=== PATIENT | male | born 1955 | race Caucasian/White ===

== ENCOUNTER → 2016-08-05 | Day surgery (SDC) | payer OTHER ==
[~2016-08-05] VITALS: Ht 170.1 cm; Wt 65.3 kg
[~2016-08-05] MED LIST: ADVAIR 500/501 EA INH; BENADRYL25 M2 PO; BENADRYL25 MG PO; CALCIUM 500 W/V1 TAB PO; CALCIUM CITRATE1 TA7 PO; CEFTIN500 MG PO; CIPRO500 MG PO; CLINDAMYCIN HC300 MG PO; COLACE100 MG PO; DOXYCYCLINE MO100 MG PO; DOXYCYCLINE100 M2 PO; DOXYCYCLINE100 M3 PO; DUONEB 3 MG/3 ML3 ML IH; DUONEB 3ML 3 MG/3 ML INH; EFFEXOR XR75 M1 PO; EPI EZ PEN1 MG/ML IM; FOLIC ACID1 MG PO; HYDROCODONE BIT1 T11 PO; INVEGA SUSTENN156 MG IM; INVEGA6 MG PO; LANSOPRAZOLE30 MG PO; LORATADINE10 M1 PO; MEDROL DOSEPAK4 MG PO; MIRALAX POWDER17 G1 PO; MIRALAX17 GM/PACK PO; MOTRIN600 MG PO; MOTRIN800 MG PO; MUCINEX DM 30/61 TAB PO; MUCINEX600 MG PO; Motrin,Rufen800 MG PO; NAPROXEN375 MG PO; NATURE'S BLEND F1 MG PO; OSCAL/D,OYSTER250 MG PO; PHARMASSURE FO0.4 MG PO; PREDNICOT20 MG PO; PREDNISONE10 MG PO; PREDNISONE20 M1 PO; PREDNISONE5 MG PO; PREVACID30 M1 PO; PREVACID30 M3 PO; PROAIR HFA0.09 MG/AC IH; PROAIR HFA0.09 MG/AC PO; PROTONIX40 MG PO; PULMICORT RESP0.5 M1 INH; ROCEPHIN2 GM IJ; SINGULAIR10 MG PO; SPIRIVA18 MCG IH; SPIRIVA18 MCG PO; TAGAMET300 MG PO; TORADOL10 MG PO; TRAMADOL HCL50 MG PO; VENLAFAXINE HYD75 M3 PO; VIBRAMYCIN100 MG PO; VICODIN 5/500 505 MG PO; VICODIN 500 MG-1 TAB PO; XANAX0.25 MG PO; ZANTAC150 MG PO; ZITHROMAX Z PA250 MG PO; ZITHROMAX250 MG PO; ZOFRAN ODT4 MG SL; ZYRTEC10 MG PO
--- NOTE | ~2016-08-05 | O ---
[place], [place] OPERATIVE NOTE NAME: SWETA PARRY UNIT #: [id number] ROOM: DOCTOR: CRISTINO CROWELL MD BIRTHDATE: [birth year] DOS: GASTROENDOSCOPIC REPORT HISTORY OF PRESENT ILLNESS: A 61-year-old patient who has presented with chief complaint of abdominal pain, constipation, weight loss, anorexia, undergoing investigation. PAST MEDICAL HISTORY: Associated with gastritis, COPD, degenerative joint disease, on Motrin. PAST SURGICAL HISTORY: Minor operation. ALLERGIES: IVP DYE, ASPIRIN, NOVOCAIN, PENICILLIN. SOCIAL HISTORY: Nonsmoker, nonalcohol consumer. FAMILY HISTORY: Noncontributory. PROCEDURE: Today's procedure part of investigation is panendoscopy. PREMEDICATION: Versed and Diprivan. SCOPE: Olympus forward viewing gastroscope Q10 video. REPORT: After putting the patient in left lateral position and application of lubricant to the scope, the scope was introduced. Thereafter, under direct visualization, I advanced through the length of the esophagus without difficulty. Esophagus, cervicothoracic distally carefully examined. Gastritis was noticed, bile reflux was noticed. Hiatal hernia was seen. Duodenal bulb, second and third part within normal limits. Antral biopsy was obtained for diffuse gastritis, ruling out H. pylori. The patient extubated, tolerated procedure well. IMPRESSION: Diffuse gastritis, could be secondary to Motrin and prednisone intake. On the other hand, the patient on Prevacid 30 mg daily. We are going to continue with the same therapy. We are going to ask him to be judicial about his Prevacid use and clinical reassessment. Meanwhile, I am going to organize a colonoscopy today. [place], [place] OPERATIVE NOTE NAME: SWETA PARRY UNIT #: [id number] ROOM: DOCTOR: CRISTINO CROWELL MD BIRTHDATE: [birth year] CRISTINO CROWELL MD CM:OPRECORD:OPERATIVE NOTE [id number] CRISTINO CROWELL MD 08/05/16 1130 interface
--- NOTE | ~2016-08-05 | O ---
[place], [place] OPERATIVE NOTE [id number] UNIT #: [id number] ROOM: DOCTOR: SOCRATES CAVAZOS,CRISTINO BIRTHDATE: [birth year] DOS: GASTROENDOSCOPIC REPORT HISTORY OF PRESENT ILLNESS: The patient who has presented with chief complaint of constipation, undergoing investigation, weight loss. PROCEDURE: Today's procedure part of investigation is colonoscopy. PREMEDICATION: Versed and Diprivan. SCOPE: Olympus forward viewing colonoscope 10L video. REPORT: After putting the patient in the left lateral position and after application of lubricant to the scope, the scope was introduced. Thereafter, under direct visualization, I advanced through the length of colon without difficulty. Colon mucosa and vascularity carefully examined and evidence of diverticulosis was seen. Base of the cecum explored, appendiceal orifice identified, and ileocecal valve was defined. The patient extubated, tolerated procedure well. IMPRESSION: Diverticulosis, sessile colonic polyp in rectal pouch, status post piecemeal polypectomy. PLAN AND DISCUSSION: High fiber fruit diet. ACTIVITY: Ad gabriel. I will defer this patient back to our office. In case he is continuing with weight loss, then a CT scan of the abdomen and pelvis as well as a chest x-ray recommended. Follow up with me in office in 2 weeks for further reassessment. CRISTINO CROWELL MD CM:OPRECORD:OPERATIVE NOTE [id number] MARIA ELENA CROWELL MD 08/05/16 1135 interface
[2016-08-05 09:09] VITALS: BP 132/75
[2016-08-05 09:36] VITALS: BP 122/58
[2016-08-05 09:51] VITALS: BP 112/52
[2016-08-05 10:06] VITALS: BP 122/66
== END | disposition home or self-care (01) ==
LOC: SDC 07-30 09:30
DX: K62.1 Rectal polyp (principal); K57.30 Diverticulosis of large intestine without perforation or abscess without bleeding; K29.50 Unspecified chronic gastritis without bleeding; M19.90 Unspecified osteoarthritis, unspecified site; K44.9 Diaphragmatic hernia without obstruction or gangrene; J45.909 Unspecified asthma, uncomplicated; K21.9 Gastro-esophageal reflux disease without esophagitis; F41.9 Anxiety disorder, unspecified; J43.9 Emphysema, unspecified; Z86.14 Personal history of Methicillin resistant Staphylococcus aureus infection; Z82.49 Family history of ischemic heart disease and other diseases of the circulatory system; Z82.5 Family history of asthma and other chronic lower respiratory diseases; Z87.891 Personal history of nicotine dependence

== ENCOUNTER 2017-06-21 10:26 | Inpatient (IN) | payer OTHER ==
[~2017-06-21] VITALS: Ht 170.1 cm; Wt 69.2 kg
--- NOTE | ~2017-06-21 | PR ---
[place], [place] PROGRESS NOTE [id number] UNIT #: [id number] ROOM: 405 DOCTOR: HELENA DELUCA MD BIRTHDATE: [birth year] DOS: SUBJECTIVE: The patient is doing fine without any complaints. Denies any chest pains, palpitations or shortness of breath. PHYSICAL EXAMINATION: GENERAL: The patient is awake and alert and oriented. LUNGS: Diminished breath sounds. No wheezes, rales or rhonchi heard. HEART: Regular. ABDOMEN: Soft. EXTREMITIES: Without any edema. ASSESSMENT AND PLAN: 1. Acute exacerbation of chronic obstructive pulmonary disease, stable and improved. 2. Tachycardia, possibly from underlying DuoNeb. The medication was changed to Xopenex. 3. Chest pain. The patient's echocardiogram is pending, but the patient is stable and will be discharged to home as an outpatient. Follow up as an outpatient with Dr. Katz. HELENA DELUCA MD CM:PNTRANS [id number] HELENA DELUCA MD 06/24/17 1034 interface
--- NOTE | ~2017-06-21 | PR ---
[place], [place] PROGRESS NOTE NAME: SWETA PARRY UNIT #: [id number] ROOM: 405 DOCTOR: HELENA DELUCA MD BIRTHDATE: [birth year] DOS: 06/23/2017 SUBJECTIVE: The patient is doing fine without any complaints. Denies any chest pains, palpitations or shortness of breath. PHYSICAL EXAMINATION: VITAL SIGNS: Blood pressure is 140/61, pulse of 113, respirations 18, temperature 97.4. LUNGS: Diminished breath sounds, clear. HEART: Regular. ABDOMEN: Soft. EXTREMITIES: Without any edema. ASSESSMENT AND PLAN: 1. Acute exacerbation of chronic obstructive pulmonary disease, stable and improving on the current dose of steroids. 2. Acute tracheobronchitis, on IV antibiotics. 3. Bipolar disorder with psychosis, stable. The patient is awaiting an echocardiogram today and if it is normal, the plan is to discharge him to home tomorrow. HELENA DELUCA MD CM:PNTRANS [id number] HELENA DELUCA MD 06/23/17 1217 interface
--- NOTE | ~2017-06-21 | WRIGHTHP ---
[place], [place] PATIENT HISTORY AND PHYSICAL EXAM NAME: SWETA PARRY UNIT #: [id number] ROOM: 405 DOCTOR: YOSI CAVAZOSHELENA BIRTHDATE: [birth year] DOS: 06/21/2017 HISTORY OF PRESENT ILLNESS: The patient is 62 years old, comes in with complaints of shortness of breath for the last 3-4 days, which is increased and so decided to come into the emergency room. He denies having any chest pains, palpitations, not have any fever or chills, does not have any abdominal pain, nausea and emesis. He has extremely dry skin. His cough is productive of scant amounts of white sputum. The patient states that hle is taking all his medications. PAST MEDICAL HISTORY: Significant for: 1. Multiple hospitalizations for acute exacerbation of COPD, last one was February 2016. 2. Bipolar disorder with psychosis. 3. Gastroesophageal reflux disease. 4. History of Riley's esophagus. 5. History of cholecystectomy. MEDICATIONS: Currently are Invega 156 monthly, Breo Ellipta 1 inhalation daily, Xanax 0.25 t.i.d., benztropine 1 mg t.i.d., calcium 500 twice a day, cetirizine 10 daily, folic acid 0.4 mg daily, ibuprofen 800 mg t.i.d., lansoprazole 40 mg daily, Singulair 10 daily, Effexor XR 75 daily. SOCIAL HISTORY: Nonsmoker, does not use any alcohol. PHYSICAL EXAMINATION: GENERAL: He lives at home with his mom. VITAL SIGNS: Blood pressure is 140/66, pulse 95, respirations 20, temperature 97.2. LUNGS: Diminished breath sounds, scattered rales heard bilaterally. HEART: Regular. ABDOMEN: Obese. EXTREMITIES: Without any edema. SKIN: Significant xeroderma noted. ASSESSMENT AND PLAN: 1. Acute exacerbation of COPD with acute respiratory distress syndrome. The patient is placed on IV steroids and antibiotics. 2. Rule out underlying coronary artery disease. Echocardiogram is ordered today because of continued shortness of breath on maximal treatment plan. 3. Xerodema, ammonium lactate solution has been ordered. 4. Bipolar controlled and Invega. [place], [place] PATIENT HISTORY AND PHYSICAL EXAM NAME: SWETA PARRY UNIT #: [id number] ROOM: 405 DOCTOR: HELENA DELUCA MD BIRTHDATE: [birth year] HELENA DELUCA MD CM:HISPHYS:PATIENT HISTORY AND PHYSICAL EXAMINATION [id number] HELENA DELUCA MD 06/22/17 1007 interface
--- NOTE | ~2017-06-21 | DS ---
[place], [place] DISCHARGE SUMMARY [id number] UNIT #: [id number] ROOM: 405 DOCTOR: HELENA DELUCA MD BIRTHDATE: [birth year] DOS: 06/24/2017 DIAGNOSES: 1. Chest pain, ruled out for myocardial infarction. Echocardiogram is still not available. 2. Tachycardia from DuoNeb. 3. Chronic obstructive pulmonary disease with acute exacerbation. 4. Bipolar disorder. HOSPITAL COURSE: This patient is 62-year-old, very well known to us, comes in with complaints of difficulty breathing and chest pain. After admission, the patient was placed on IV steroids, breathing treatments, antibiotics. The patient ruled out for MS. Last stress test was done in January 2015, which was normal. The patient is stable and improving on the steroids. She did develop some tachycardia, sinus possibly from the IV steroids as well as the DuoNeb, which was changed to Xopenex. The patient's heart rate improved after that. Echocardiogram has been done, unfortunately no result is available. The patient will be discharged today to be followed as an outpatient on tapering dose of steroids, antibiotics, with acute tracheobronchitis. Follow with Dr. Arzate as an outpatient for stress testing. HELENA DELUCA MD CM:SRINI [phone] HELENA DELUCA MD 06/24/17 1027 interface
[2017-06-21 10:26] VITALS: BP 152/76
[2017-06-21 10:54] LABS: BASO % 0.2 % (0.0-1.0); EOS # 0.3 10*3/uL (0.0-0.4); EOS % 3.9 % (1.0-4.0); HEMATOCRIT 37.5 % (42.0-52.0); HEMOGLOBIN 12.7 g/dl (14.0-18.0); LYMPH # 0.8 10*3/uL (1.3-4.4); LYMPH % 9.6 % (27.0-41.0); MEAN CELL VOLUME 90.4 fl (80.0-94.0); MEAN CORPUSCULAR HGB 30.6 pg (27.0-31.0); MEAN CORPUSCULAR HGB CONC 33.9 g/dl (33.0-37.0); MONO # 0.6 10*3/uL (0.1-1.0); NEUT # 6.9 10*3/uL (2.3-7.9); NEUT % 79.1 % (47.0-73.0); PLATELET COUNT AUTOMATED 209 10*3/uL (130-400); RED BLOOD COUNT 4.15 10*6/uL (4.50-5.90); RED CELL DISTRI WIDTH 13.5 % (0-14.5); WHITE BLOOD COUNT 8.7 10*3/uL (4.8-10.8)
[2017-06-21 11:04] LABS: ACT PARTIAL THROMBO TIME 23.8 SECONDS (20.8-31.5)
[2017-06-21 11:12] LABS: ALBUMIN 3.8 gm/dl (3.1-4.5); ALKALINE PHOSPHATASE 78 U/L (45-117); BUN 13 mg/dl (7-24); CHLORIDE 103 mmol/L (98-107); CREATININE 1.31 mg/dL (0.70-1.30); SGOT/AST 18 IU/L (3-35); SGPT/ALT 19 U/L (12-78); SODIUM 139 mmol/L (136-145); TOTAL PROTEIN 7.8 gm/dL (6.4-8.2)
[2017-06-21 11:14] LABS: TROPONIN I < 0.015 ng/ml (<0.045)
[2017-06-21 11:26] VITALS: BP 135/72
[2017-06-21 13:17] VITALS: BP 148/74
[2017-06-21 13:50] VITALS: BP 156/71
--- NOTE | 2017-06-21 13:50 | NUR ---
Time: 1349 A 62 year old MALE admitted to 4E under services of HELENA FENTON MD. Pt. arrived via stretcher from ER. Chief complaint: CHEST PAIN AND COPD EXACERBATION. MARIAELENA MERRILL
[2017-06-21] MEDS ORDERED: BREO ELLIPTA 21 EACH INH (14:13)
[2017-06-21] MEDS ORDERED: VENTOLIN 02.5 MG/3 M INH (14:14)
[2017-06-21] MEDS ORDERED: EFFEXOR XR75 MG PO (14:16)
[2017-06-21] MEDS ORDERED: ALL DAY ALLERGY10 M2 PO (14:17)
[2017-06-21] MEDS ORDERED: XANAX0.25 MG PO (14:18)
[2017-06-21] MEDS ORDERED: BENZTROPINE MESY1 MG PO (14:19)
--- NOTE | 2017-06-21 14:56 | NUR ---
DR. DELUCA CALLED, NOTIFIED OF PATIENT IS IN ROOM 405, ORDERS RECIEVED.
--- NOTE | 2017-06-21 15:03 | NUR ---
MEDS VERIFIED WITH PATIENT AND PHARMACY.
--- NOTE | 2017-06-21 15:53 | NUR ---
PATIENT RESTING IN BED CALL [facility] IN REACH NO CO AT THIS TIME SEE SHIFT ASSESSMENT
[2017-06-21 16:00] VITALS: BP 147/60
[2017-06-21 20:00] VITALS: BP 145/87
--- NOTE | 2017-06-21 20:14 | NUR ---
PATIENT AWAKE SITTING UP AT BED. AT BEDSIDE. PATIENT STATES HE IS EXPERIENCING SOME MINOR L SIDED RIB PAIN FROM COUGHING, BUT SAYS HE WOULD LIKE TO WAIT UNTIL HIS 2200 IBUPROFEN DOSE TO BE MEDICATED. WILL MONITOR PATIENT. CALL LIGHT LEFT IN REACH.
[2017-06-22] VITALS: BP 116/64
[2017-06-22] MEDS ORDERED: INVEGA SUSTENN156 MG IM (01:04)
--- NOTE | 2017-06-22 02:16 | NUR ---
PATIENT AWAKE IN BED AT THIS TIME. C/O SOME WHEEZING, BUT STATES HE FEELS THAT HE IS GOING TO BE ABLE TO BRING UP SOME SPUTUM. PATIENT ENCOURAGED TO COUGH AND DEEP BREATHE. WILL MONITOR PATIENT. GINGERALE AND CRACKERS PROVIDED PER PATIENT REQUEST.
[2017-06-22 08:00] VITALS: BP 140/66
--- NOTE | 2017-06-22 08:00 | NUR ---
PT SITTING UP AT SIDE OF BED EATING BREAKFAST, NO DISTRESS NOTED. PT DENIES ANY SOB AT REST, STATES BREATHING HAS IMPROVED SOME, BUT IS STILL SOB WITH EXERTION. PT STATES A NON-PROD COUGH, LUNG SOUNDS DIMINISHED WITH FAINT EXP WHEEZES. PT STATES MILD PAIN IN LEFT RIB. PT HAS DRY SKIN NOTED TO HIS LOWER EXTREMITIES. PT DENIES ANY COMPLAINTS AT THIS TIME. CALL LIGHT WITHIN REACH.
--- NOTE | 2017-06-22 08:30 | NUR ---
Electric Refrigerator Preparer in to talk to patient. Patient states lives at HOME with HIS MOTHER. There are 0 steps in the home. Physician: DR HA Pharmacy: [facility] Home health services: NONE Patient's level of ADLs: INDEPENDENT Patient has working utilities: YES DME: NONE Follow-up physician's appointment after d/c: PREFERS TO MAKE HIS OWN APPT Does patient want to access PORTAL?: Discharge plan HOME. MAKENZIE LOPEZ
[2017-06-22 12:00] VITALS: BP 130/71
[2017-06-22 16:00] VITALS: BP 130/60
[2017-06-22 20:00] VITALS: BP 148/74
[2017-06-23] VITALS: BP 140/61
--- NOTE | 2017-06-23 04:10 | NUR ---
PT IS RESTING IN BED. RESPIRATIONS ARE EASY, REGULAR WITH NO DISTRESS NOTED.
--- NOTE | 2017-06-23 06:52 | NUR ---
Shift chart check completed.
[2017-06-23 08:00] VITALS: BP 130/67
--- NOTE | 2017-06-23 08:32 | NUR ---
ASSESSMENT COMPLETE. SEE DOCUMENTATION. PT SITTING SIDE OF BED, NO DISTRESS NOTED. PT STATES PAIN ON LEFT SIDE OF CHEST/RIB AREA WITH COUGHING, DENY NEED FOR PAIN MEDICAION AT THIS TIME. PT DENY CHEST PAIN, STATES SHORTNESS OF BREATH HAS IMPROVED. NO NEEDS STATED. WILL CONTINUE TO MONITOR
[2017-06-23 12:00] VITALS: BP 136/73
[2017-06-23 16:00] VITALS: BP 143/75
--- NOTE | 2017-06-23 17:18 | NUR ---
NOTIFIED DR. DELUCA OF PATIENTS HEART RATE OF 120S. ORDER TO D/C DUONEB AND CHANGE TO XOPENEX.MADE AWARE THAT PT DID NOT RECEIVE ECHO TODAY.
[2017-06-23 20:00] VITALS: BP 143/75
[2017-06-24] VITALS: BP 139/70
--- NOTE | 2017-06-24 00:47 | NUR ---
24 HR chart check completed.
[2017-06-24 08:00] VITALS: BP 127/66
--- NOTE | 2017-06-24 08:30 | NUR ---
PT SITTING UP IN BED, WAITING ON HIS BREAKFAST. PT STATES SOB HAS RESOLVED. LUNGS DIMINISHED, PT ON ROOM AIR, PT STATES HE IS STILL HAVING A NON-PRODUCTIVE COUGH. PT STATES RIB PAIN HAS RESOLVED. PT DENIES ANY COMPLAINTS. CALL LIGHT WITHIN REACH.
[2017-06-24] MEDS ORDERED: DOXYCYCLINE100 MG PO (09:25)
[2017-06-24] MEDS ORDERED: PREDNISONE5 MG PO (09:25)
--- NOTE | 2017-06-24 14:34 | NUR ---
Discharge instructions reviewed with patient/family. Patient receptive and verbalizes understanding. Follow-up care arranged. Written instructions given to patient/family. IV site and monitoring manager removed. Pt transported to [facility] via wheelchair. DORCAS CUBA
== END 2017-06-24 14:34 | disposition home or self-care (01) | DRG 191 ==
LOC: ED 10:26 → 4E 12:16 → EDHOLD 12:16 → 4E 12:34
PROVIDERS: Emergency Medicine; ADMIT Internal Medicine
DX: J44.0 Chronic obstructive pulmonary disease with (acute) lower respiratory infection (principal); J80 Acute respiratory distress syndrome; F31.2 Bipolar disorder, current episode manic severe with psychotic features; K22.70 Barrett's esophagus without dysplasia; K21.9 Gastro-esophageal reflux disease without esophagitis; E66.9 Obesity, unspecified; J44.1 Chronic obstructive pulmonary disease with (acute) exacerbation; R07.9 Chest pain, unspecified; J20.9 Acute bronchitis, unspecified; T38.0X5A Adverse effect of glucocorticoids and synthetic analogues, initial encounter; Y92.89 Other specified places as the place of occurrence of the external cause; Z88.0 Allergy status to penicillin; Z91.041 Radiographic dye allergy status; Z91.010 Allergy to peanuts; Z88.8 Allergy status to other drugs, medicaments and biological substances; Z88.6 Allergy status to analgesic agent; Z91.012 Allergy to eggs; Z91.013 Allergy to seafood; Z79.899 Other long term (current) drug therapy; Z82.49 Family history of ischemic heart disease and other diseases of the circulatory system; Z83.6 Family history of other diseases of the respiratory system; Z90.49 Acquired absence of other specified parts of digestive tract; Z68.23 Body mass index [BMI] 23.0-23.9, adult

== ENCOUNTER → 2017-07-20 | Outpatient (CLI) | payer OTHER ==
[~2017-07-20] MED LIST changes: +ALL DAY ALLERGY10 M2 PO; +BENZTROPINE MESY1 MG PO; +BREO ELLIPTA 21 EACH INH; +DOXYCYCLINE100 MG PO; +EFFEXOR XR75 MG PO; +VENTOLIN 02.5 MG/3 M INH
--- NOTE | ~2017-07-20 | EKG ---
[place], [place] ELECTROCARDIOGRAM REPORT NAME: SWETA PARRY UNIT #: [id number] ROOM: DOCTOR: MARIA ELENA HA MD BIRTHDATE: [birth year] DOS: 07/20/2017 TIME: 14 hours and 16 minutes. EKG shows normal sinus rhythm with the heart rate of 99 beats per minute, normal cardiac access. No acute ST-T abnormality. MARIA ELENA HA MD CM:EKGRPT:ELECTROCARDIOGRAM REPORT [phone] MARIA ELENA HA MD
== END | disposition home or self-care (01) ==
LOC: CARD 13:55
DX: R07.9 Chest pain, unspecified (principal)

== ENCOUNTER 2017-08-25 09:05 | Inpatient (IN) | payer OTHER ==
[2017-08-25] VITALS (9 sets, daily range): BP systolic 122–167; BP diastolic 54–84
[~2017-08-25] VITALS: Ht 4714 cm; Wt 2.5 kg
--- NOTE | ~2017-08-25 | WRIGHTHP ---
[place], [place] PATIENT HISTORY AND PHYSICAL EXAM NAME: SWETA PARRY [facility] #: [id number] UNIT #: [id number] ROOM: [facility] DOCTOR: MARIA ELENA HA MD BIRTHDATE: [birth year] DOS: 08/25/2017 HISTORY OF PRESENT ILLNESS: The patient is a 62-year-old gentleman with a past medical history of: 1. COPD. 2. Bipolar disorder. 3. Riley's esophagus. 4. POLLEN allergies. 5. GERD and esophagitis. 6. History of cholecystectomy. 7. Significant generalized anxiety disorder. 8. History of bronchial asthma. The patient presented to the Emergency Department with 2 episodes of sharp left-sided chest pains lasting fraction of a second at a time. The patient was fully evaluated in the Emergency Department and was found to be in acute urinary retention and a Ramos catheter was placed and he was found to have 2 liter residual in his bladder, which was drained. The patient was recommended for chest pain protocol. The patient admitted and cardiac enzymes were checked and he was started on Flomax. No increasing shortness of breath. No GI or urinary symptoms. REVIEW OF SYSTEMS: LUNGS: No increasing shortness of breath or wheezing. GASTROINTESTINAL: No nausea, vomiting, diarrhea or constipation. CARDIOVASCULAR: Complains of sharp left-sided chest pains. FAMILY HISTORY: Noncontributory. HOME MEDICATIONS: Cetirizine, Protonix, Effexor, Singulair, DuoNeb, Flomax, Xanax. PHYSICAL EXAMINATION: GENERAL: Alert and oriented x 3, in no visible distress. HEENT AND NECK: Extraocular movements are intact. Sclerae are anicteric. Oral mucosa is moist and clean. No obvious facial weakness. Neck is supple without any lymphadenopathy. No thyromegaly. No JVD. No carotid arterial bruits. LUNGS: Clear to auscultation. No wheezing. No rhonchi. CARDIOVASCULAR SYSTEM: Heart rate is regular in rate and rhythm. S1 and S2 normally audible. No significant murmur or any other abnormal cardiac sounds. ABDOMEN: Soft, nontender. No obvious organomegaly. Bowel sounds are present. No obvious herniation. EXTREMITIES: Without significant cyanosis or edema. Warm to touch. CENTRAL NERVOUS SYSTEM: Alert and oriented x 3. Cranial nerves II-XII are intact. Speech is normal. The patient is able to move all extremities. Normal muscle strength. Deep tendon reflexes are equal on both sides. Plantars were downgoing. LABORATORY DATA: Three sets of cardiac enzymes, troponin I levels have been [place], [place] PATIENT HISTORY AND PHYSICAL EXAM NAME: SWETA PARRY UNIT #: [id number] ROOM: [facility] DOCTOR: MARIA ELENA HA MD BIRTHDATE: [birth year] negative and patient has been chest pain free. Chest x-ray without any acute abnormality. White cell count elevated to 13,900 at admission. IMPRESSION: 1. The patient with acute urinary retention, to be treated with Ramos catheter placement and will be sent home with Ramos catheter and a thigh bag, to follow up with a urologist as an outpatient. The patient already started on Flomax. The patient continues to retain 1.5 to 2 liters of urine in his bladder residual before he straight cathed, put an indwelling Ramos catheter for now until he sees a urologist. 2. Chest pains from uncertain etiology. Cardiac enzymes are negative. The patient already scheduled for an outpatient cardiac stress test on Wednesday, which will be performed and he is asymptomatic. If the patient gets chest pains again, he has been asked to return to the Emergency Department on urgent basis. 3. Chronic centrilobular emphysema, treated with bronchodilators, asymptomatic at this time. 4. Generalized anxiety disorder, treated with Xanax as needed. MARIA ELENA HA MD CM:HISPHYS:PATIENT HISTORY AND PHYSICAL EXAMINATION 2 1 MARIA ELENA HA MD 08/26/1741 interface
[~2017-08-25 09:05] MED LIST changes: +PREVACID30 M2 PO; -PREVACID30 M3 PO
[2017-08-25 09:28] LABS: BASO % 0.1 % (0.0-1.0); EOS # 0.1 10*3/uL (0.0-0.4); EOS % 0.5 % (1.0-4.0); HEMATOCRIT 42.5 % (42.0-52.0); HEMOGLOBIN 14.1 g/dl (14.0-18.0); LYMPH # 0.4 10*3/uL (1.3-4.4); LYMPH % 3.1 % (27.0-41.0); MEAN CELL VOLUME 89.7 fl (80.0-94.0); MEAN CORPUSCULAR HGB 29.7 pg (27.0-31.0); MEAN CORPUSCULAR HGB CONC 33.2 g/dl (33.0-37.0); MEAN PLATELET VOLUME 9.1 fl (9.6-12.3); MONO # 0.9 10*3/uL (0.1-1.0); MONO % 6.2 % (3.0-9.0); NEUT # 12.5 10*3/uL (2.3-7.9); NEUT % 89.8 % (47.0-73.0); PLATELET COUNT AUTOMATED 279 10*3/uL (130-400); RED BLOOD COUNT 4.74 10*6/uL (4.50-5.90); WHITE BLOOD COUNT 13.9 10*3/uL (4.8-10.8)
[2017-08-25 09:39] LABS: ACT PARTIAL THROMBO TIME 24.1 SECONDS (20.8-31.5); INTERNATIONAL NORM RATIO 1.1 (2.0-3.5)
[2017-08-25 09:41] LABS: LIPASE 107 U/L (73-393)
[2017-08-25 09:42] LABS: ETHYL ALCOHOL < 3.0 mg/dl (<3)
[2017-08-25 09:46] LABS: ALBUMIN 4.3 gm/dl (3.1-4.5); ALKALINE PHOSPHATASE 86 U/L (45-117); BUN 21 mg/dl (7-24); CHLORIDE 99 mmol/L (98-107); CREATININE 1.37 mg/dL (0.70-1.30); POTASSIUM 4.1 mmol/L (3.5-5.1); SGOT/AST 17 IU/L (3-35); SGPT/ALT 20 U/L (12-78); SODIUM 137 mmol/L (136-145); TOTAL PROTEIN 8.4 gm/dL (6.4-8.2)
[2017-08-25 09:48] LABS: TROPONIN I < 0.015 ng/ml (<0.045)
[2017-08-25 10:04] LABS: BILIRUBIN NEGATIVE (NEGATIVE); BLOOD NEGATIVE (NEGATIVE); CLARITY CLEAR (CLEAR); COLOR YELLOW (YELLOW); GLUCOSE NEGATIVE (NEGATIVE); KETONE NEGATIVE (NEGATIVE); LEUKO ESTERASE NEGATIVE (NEGATIVE); NITRITE NEGATIVE (NEGATIVE); SPECIFIC GRAVITY 1.015 (1.005-1.030)
[2017-08-25 10:12] LABS: URINE AMPHETAMINES < 1000 (1000ng/ml); URINE BARBITURATES < 200 (200ng/ml); URINE BENZODIAZEPINES > 200 (200ng/ml); URINE CANNABINOIDS (THC) < 50 (50ng/ml); URINE COCAINE < 300 (300ng/ml); URINE METHADONE < 300 (300ng/ml); URINE OPIATES < 300 (300ng/ml); URINE PHENCYCLIDINE < 25 (25ng/ml)
[2017-08-25 10:22] LABS: EPITHELIAL CELLS 0-2; WBC 0-2 wbc/hpf (0-5)
[2017-08-26] VITALS: BP 136/76
[2017-08-26 08:04] VITALS: BP 118/76
== END 2017-08-26 14:05 | disposition home or self-care (01) | DRG 313 ==
LOC: ED 09:05 → EDHOLD 10:23 → 5E 10:23
PROVIDERS: Emergency Medicine
DX: R07.89 Other chest pain (principal); J43.2 Centrilobular emphysema; F31.9 Bipolar disorder, unspecified; R33.9 Retention of urine, unspecified; R00.0 Tachycardia, unspecified; K21.0 Gastro-esophageal reflux disease with esophagitis; F41.1 Generalized anxiety disorder; K22.70 Barrett's esophagus without dysplasia; Z88.7 Allergy status to serum and vaccine; Z88.8 Allergy status to other drugs, medicaments and biological substances; Z88.6 Allergy status to analgesic agent; Z88.4 Allergy status to anesthetic agent; Z88.1 Allergy status to other antibiotic agents; Z91.041 Radiographic dye allergy status; Z91.012 Allergy to eggs; Z88.5 Allergy status to narcotic agent; Z91.018 Allergy to other foods; Z88.0 Allergy status to penicillin; Z91.013 Allergy to seafood; Z79.899 Other long term (current) drug therapy; Z87.01 Personal history of pneumonia (recurrent); Z90.49 Acquired absence of other specified parts of digestive tract

== ENCOUNTER → 2017-09-04 | Outpatient (CLI) | payer OTHER ==
[2017-09-04 13:48] LABS: BASO % 0.3 % (0.0-1.0); EOS # 0.3 10*3/uL (0.0-0.4); EOS % 3.2 % (1.0-4.0); HEMATOCRIT 39.7 % (42.0-52.0); LYMPH % 10.3 % (27.0-41.0); MEAN CELL VOLUME 91.9 fl (80.0-94.0); MEAN CORPUSCULAR HGB 30.1 pg (27.0-31.0); MEAN CORPUSCULAR HGB CONC 32.7 g/dl (33.0-37.0); MEAN PLATELET VOLUME 8.8 fl (9.6-12.3); MONO # 0.7 10*3/uL (0.1-1.0); NEUT # 7.7 10*3/uL (2.3-7.9); NEUT % 78.8 % (47.0-73.0); PLATELET COUNT AUTOMATED 270 10*3/uL (130-400); RED BLOOD COUNT 4.32 10*6/uL (4.50-5.90); RED CELL DISTRI WIDTH 13.3 % (0-14.5); WHITE BLOOD COUNT 9.8 10*3/uL (4.8-10.8)
[2017-09-04 14:27] LABS: CHLORIDE 102 mmol/L (98-107); POTASSIUM 4.1 mmol/L (3.5-5.1); SODIUM 138 mmol/L (136-145)
[2017-09-04 14:45] LABS: ALKALINE PHOSPHATASE 80 U/L (45-117); BUN 17 mg/dl (7-24); CREATININE 1.17 mg/dL (0.70-1.30); SGOT/AST 14 IU/L (3-35); SGPT/ALT 21 U/L (12-78); TOTAL PROTEIN 7.6 gm/dL (6.4-8.2)
== END | disposition home or self-care (01) ==
LOC: LAB 13:23
PROVIDERS: Urology
DX: Z12.5 Encounter for screening for malignant neoplasm of prostate (principal); I10 Essential (primary) hypertension; D40.0 Neoplasm of uncertain behavior of prostate; Z79.899 Other long term (current) drug therapy

== ENCOUNTER → 2017-09-06 | Outpatient (CLI) | payer OTHER | END | disposition home or self-care (01) | LOC: US 03:55 | DX: N50.89 Other specified disorders of the male genital organs (principal) ==

== ENCOUNTER 2017-09-28 19:06 | Emergency (ER) | payer OTHER ==
[~2017-09-28] VITALS: Ht 170.1 cm; Wt 62.6 kg
[2017-09-28 19:06] VITALS: BP 122/58
== END 2017-09-28 20:30 | disposition home or self-care (01) ==
LOC: ED 19:06
DX: K59.00 Constipation, unspecified (principal); Z98.890 Other specified postprocedural states; Z79.899 Other long term (current) drug therapy; Z91.041 Radiographic dye allergy status; Z88.0 Allergy status to penicillin; Z88.7 Allergy status to serum and vaccine; Z91.012 Allergy to eggs; Z91.013 Allergy to seafood; Z88.5 Allergy status to narcotic agent

== ENCOUNTER 2017-12-01 16:01 | Inpatient (IN) | payer OTHER ==
[~2017-12-01] VITALS: Ht 170.2 cm; Wt 67.8 kg
--- NOTE | ~2017-12-01 | DS ---
[place], [place] DISCHARGE SUMMARY NAME: SWETA PARRY UNIT #: [id number] ROOM: 412 DOCTOR: MARIA ELENA HA MD BIRTHDATE: [birth year] DOS: 12/03/2017 DISCHARGE DIAGNOSES: 1. Acute exacerbation of significant underlying chronic obstructive pulmonary disease with acute over chronic respiratory failure. 2. Generalized anxiety disorder. 3. Benign prostatic hypertrophy and urinary retention. 4. Gastroesophageal reflux disease and esophagitis. 5. Bipolar disorder. 6. Major depression, recurrent, mild. HOSPITAL COURSE: The patient presented to my office with increased shortness of breath, wheezing, and hypoxemia. When ____, the patient's pulse ox dropped quickly to 88% at room air. The patient was sick enough to be admitted to the hospital and he was then put on a tank insulator rubber; treated with corticosteroids, oxygen, and nebulizer treatments. The patient's breathing has improved and he is still somewhat tachycardic with exertion with pulse ox remaining around 95% with ambulation. The patient will be discharged to home and seen in the office in a few days. Generalized anxiety disorder, treated with Xanax, which was continued. Benign prostatic hypertrophy and urinary retention, has been doing well with treatment with Flomax. GERD and esophagitis, asymptomatic with Prevacid. Bipolar disorder followed by Psychiatry, treated with Invega. LABORATORY DATA: Hemoglobin 11.67. Otherwise, normal CBC, normal platelets. Chest x-ray showing COPD, no pneumonia. DISCHARGE MANAGEMENT: Diltiazem 240 mg daily, Medrol Dosepak, Flomax 0.4 mg a day, Protonix 40 mg a day, Singulair 10 mg a day, Effexor 75 mg a day, Cogentin 1 mg b.i.d., Invega 156 mg given every month, DuoNeb q.i.d., Xanax as needed. [place], [place] DISCHARGE SUMMARY NAME: SWETA PARRY UNIT #: [id number] ROOM: 412 DOCTOR: MARIA ELENA HA MD BIRTHDATE: [birth year] MARIA ELENA HA MD CM:SRINI 01 49 MARIA ELENA HA MD 12/03/171948 interface
--- NOTE | ~2017-12-01 | WRIGHTHP ---
[place], [place] PATIENT HISTORY AND PHYSICAL EXAM NAME: SWETA PARRY [facility] #: [id number] UNIT #: [id number] ROOM: 412 DOCTOR: MARIA ELENA HA MD BIRTHDATE: [birth year] DOS: 12/01/2017 HISTORY OF PRESENT ILLNESS: The patient is a 62-year-old gentleman who presented to my office with increased shortness of breath and wheezing and feeling unwell. The patient was feeling sick enough to be admitted to the hospital and he understands that he has chronic lung disease that requires hospitalization off and on. The patient was dyspneic and short of breath and when walked in the office, his pulse ox dropped to 88%. No chest pains or fainting episodes. REVIEW OF SYSTEMS: LUNGS: Increased shortness of breath and wheezing with cough. CARDIOVASCULAR SYSTEM: No chest pain. No palpitations. GASTROINTESTINAL: No nausea, vomiting, diarrhea or constipation. FAMILY HISTORY: Noncontributory. HOME MEDICATIONS: The patient is on Prevacid, Flomax, Singulair, venlafaxine, DuoNeb, Xanax at home. ALLERGIES: Known allergies to IODINE, PENICILLIN, TETANUS, QUINOLONES, PROPOXYPHENE ____ CEPHALOSPORIN, LEVOTHYROXINE. PHYSICAL EXAMINATION: GENERAL: Alert and oriented x 3, shortness breath and somewhat tired, with no visible distress. VITAL SIGNS: Blood pressure of 130/70, heart rate of 100 beats per minute, breathing 25 times per minute, afebrile. HEENT AND NECK: Extraocular movements are intact. Sclerae are anicteric. Oral mucosa is moist and clean. No obvious facial weakness. Neck is supple without any lymphadenopathy. No thyromegaly. No JVD. No carotid arterial bruits. LUNGS: Expiratory wheezing all over on lung auscultation. CARDIOVASCULAR SYSTEM: Heart rate is regular in rate and rhythm. S1 and S2 normally audible. No significant murmur or any other abnormal cardiac sounds. ABDOMEN: Soft, nontender. No obvious organomegaly. Bowel sounds are present. No obvious herniation. EXTREMITIES: Without significant cyanosis or edema. Warm to touch. CENTRAL NERVOUS SYSTEM: Alert and oriented x 3. Cranial nerves II-XII are intact. Speech is normal. The patient is able to move all extremities. Normal muscle strength. Deep tendon reflexes are equal on both sides. Plantars were downgoing. IMPRESSION AND PLAN: 1. The patient with acute exacerbation of significant underlying chronic obstructive pulmonary disease with wheezing, cough and shortness of breath with tachypnea and hypoxemia with ambulation. The patient admitted to and is being started on IV Solu-Medrol, oxygen, antibiotics and DuoNeb. The patient is to be monitored on the intermediate monitored bed. 2. Generalized anxiety disorder. The patient continued on Xanax as needed. 3. Benign prostatic hypertrophy and urine retention, to be treated with Flomax. [place], [place] PATIENT HISTORY AND PHYSICAL EXAM NAME: SWETA PARRY UNIT #: [id number] ROOM: [facility] DOCTOR: MARIA ELENA HA MD BIRTHDATE: [birth year] 4. Gastroesophageal reflux disease and esophagitis, treated with Prevacid. 5. The patient with bipolar disorder, continued on Invega. MARIA ELENA HA MD CM:HISPHYS:PATIENT HISTORY AND PHYSICAL EXAMINATION 55 46 MARIA ELENA HA MD 12/01/172045 interface
--- NOTE | ~2017-12-01 | PR ---
[place], [place] PROGRESS NOTE [id number] UNIT #: [id number] ROOM: 412 DOCTOR: MARIA ELENA HA MD BIRTHDATE: [birth year] DOS: 12/02/2017 SUBJECTIVE: The patient's breathing is improving with treatment. OBJECTIVE: VITAL SIGNS: Blood pressure 135/80, heart rate of 91 beats per minute, breathing 16 times per minute, afebrile. GENERAL APPEARANCE: The patient is alert and oriented x 3, in no visible distress. HEENT AND NECK: Exam within normal limits. CARDIOVASCULAR SYSTEM: Heart rate is regular in rate and rhythm. S1 and S2 normally audible. LUNGS: On lung auscultation, he had some expiratory wheezing all over. ABDOMEN: Soft, nontender. No obvious organomegaly. Bowel sounds are present. EXTREMITIES: Without significant cyanosis or edema. IMPRESSION: 1. Acute exacerbation of significant underlying chronic obstructive pulmonary disease with acute over chronic respiratory failure and hypoxemia with ambulation, is improving with treatment with corticosteroids, bronchodilators, and antibiotics. 2. Generalized anxiety disorder, treated with Xanax as needed. 3. Benign prostatic hypertrophy and urinary retention, treated and asymptomatic with Flomax. 4. Gastroesophageal reflux disease and esophagitis, treated with Prevacid, asymptomatic. 5. Bipolar disorder, controlled with Invega. MARIA ELENA HA MD CM:PNTRANS 9 MARIA ELENA HA MD 12/03/17 0209 interface
[2017-12-01] MEDS ORDERED: TAMSULOSIN HCL0.4 MG PO (17:58)
[2017-12-01 20:00] VITALS: BP 131/68
[2017-12-02 00:24] VITALS: BP 130/60
[2017-12-02 06:31] LABS: BASO % 0.4 % (0.0-1.0); EOS # 0.2 10*3/uL (0.0-0.4); EOS % 2.5 % (1.0-4.0); HEMATOCRIT 35.9 % (42.0-52.0); HEMOGLOBIN 11.6 g/dl (14.0-18.0); LYMPH % 12.7 % (27.0-41.0); MEAN CELL VOLUME 91.3 fl (80.0-94.0); MEAN CORPUSCULAR HGB 29.5 pg (27.0-31.0); MEAN CORPUSCULAR HGB CONC 32.3 g/dl (33.0-37.0); MEAN PLATELET VOLUME 9.4 fl (9.6-12.3); MONO # 0.8 10*3/uL (0.1-1.0); MONO % 10.1 % (3.0-9.0); NEUT # 5.7 10*3/uL (2.3-7.9); PLATELET COUNT AUTOMATED 195 10*3/uL (130-400); RED BLOOD COUNT 3.93 10*6/uL (4.50-5.90); RED CELL DISTRI WIDTH 13.9 % (0-14.5); WHITE BLOOD COUNT 7.7 10*3/uL (4.8-10.8)
[2017-12-02 06:42] LABS: BUN 12 mg/dl (7-24); CHLORIDE 103 mmol/L (98-107); CREATININE 1.13 mg/dL (0.70-1.30); POTASSIUM 3.8 mmol/L (3.5-5.1); SODIUM 142 mmol/L (136-145)
[2017-12-02 08:00] VITALS: BP 126/60
[2017-12-02 12:00] VITALS: BP 138/65; BP 168/76
[2017-12-02 16:00] VITALS: BP 140/60
[2017-12-02 20:00] VITALS: BP 135/80
[2017-12-03] VITALS: BP 133/68
[2017-12-03 08:00] VITALS: BP 142/72
[2017-12-03 12:00] VITALS: BP 144/69
[2017-12-03 16:39] VITALS: BP 142/72
[2017-12-03] MEDS ORDERED: CARDIZEM CD240 M1 PO (18:59)
[2017-12-03] MEDS ORDERED: MEDROL DOSEPAK4 MG PO (18:59)
== END 2017-12-03 19:35 | disposition home or self-care (01) | DRG 190 ==
LOC: 4E 16:01
PROVIDERS: Internal Medicine
DX: J44.1 Chronic obstructive pulmonary disease with (acute) exacerbation (principal); J96.21 Acute and chronic respiratory failure with hypoxia; F33.0 Major depressive disorder, recurrent, mild; F41.1 Generalized anxiety disorder; N40.1 Benign prostatic hyperplasia with lower urinary tract symptoms; K21.0 Gastro-esophageal reflux disease with esophagitis; Z88.0 Allergy status to penicillin; Z88.7 Allergy status to serum and vaccine; Z88.8 Allergy status to other drugs, medicaments and biological substances; Z79.01 Long term (current) use of anticoagulants; Z79.899 Other long term (current) drug therapy

== ENCOUNTER → 2018-04-08 | Outpatient (CLI) | payer OTHER ==
[~2018-04-08] MED LIST changes: +CARDIZEM CD240 M1 PO; +TAMSULOSIN HCL0.4 MG PO
[2018-04-08 12:48] LABS: BASO % 0.3 % (0.0-1.0); EOS # 0.1 10*3/uL (0.0-0.4); EOS % 1.4 % (1.0-4.0); HEMATOCRIT 37.4 % (42.0-52.0); HEMOGLOBIN 12.7 g/dl (14.0-18.0); LYMPH # 1.2 10*3/uL (1.3-4.4); LYMPH % 12.8 % (27.0-41.0); MEAN CELL VOLUME 91.7 fl (80.0-94.0); MEAN CORPUSCULAR HGB 31.1 pg (27.0-31.0); MEAN PLATELET VOLUME 8.7 fl (9.6-12.3); MONO # 0.6 10*3/uL (0.1-1.0); MONO % 6.1 % (3.0-9.0); NEUT # 7.5 10*3/uL (2.3-7.9); NEUT % 78.9 % (47.0-73.0); PLATELET COUNT AUTOMATED 181 10*3/uL (130-400); RED BLOOD COUNT 4.08 10*6/uL (4.50-5.90); RED CELL DISTRI WIDTH 13.9 % (0-14.5); WHITE BLOOD COUNT 9.5 10*3/uL (4.8-10.8)
[2018-04-08 13:26] LABS: ALBUMIN 3.6 gm/dl (3.1-4.5); ALKALINE PHOSPHATASE 68 U/L (45-117); BETA-HCG, TUMOR MARKER < 1.0 mIU/mL (<1); BUN 14 mg/dl (7-24); CHLORIDE 103 mmol/L (98-107); CREATININE 1.09 mg/dL (0.70-1.30); LDH 175 U/L (87-241); POTASSIUM 3.7 mmol/L (3.5-5.1); SGOT/AST 14 IU/L (3-35); SGPT/ALT 19 U/L (12-78); SODIUM 140 mmol/L (136-145); TOTAL PROTEIN 7.6 gm/dL (6.4-8.2)
== END | disposition home or self-care (01) ==
LOC: US 04-04 13:30 → LAB 12:23 → US 13:30
PROVIDERS: Urology
DX: I86.1 Scrotal varices (principal); N50.89 Other specified disorders of the male genital organs; I10 Essential (primary) hypertension; D40.0 Neoplasm of uncertain behavior of prostate

== ENCOUNTER → 2018-07-15 | Outpatient (CLI) | payer OTHER ==
[2018-07-15 13:54] LABS: BASO % 0.3 % (0.0-1.0); EOS # 0.1 10*3/uL (0.0-0.4); EOS % 0.8 % (1.0-4.0); HEMATOCRIT 38.3 % (42.0-52.0); HEMOGLOBIN 12.7 g/dl (14.0-18.0); LYMPH # 0.8 10*3/uL (1.3-4.4); MEAN CELL VOLUME 92.7 fl (80.0-94.0); MEAN CORPUSCULAR HGB 30.8 pg (27.0-31.0); MEAN CORPUSCULAR HGB CONC 33.2 g/dl (33.0-37.0); MEAN PLATELET VOLUME 8.7 fl (9.6-12.3); MONO # 0.6 10*3/uL (0.1-1.0); MONO % 5.8 % (3.0-9.0); NEUT # 8.4 10*3/uL (2.3-7.9); NEUT % 84.5 % (47.0-73.0); PLATELET COUNT AUTOMATED 176 10*3/uL (130-400); RED BLOOD COUNT 4.13 10*6/uL (4.50-5.90); RED CELL DISTRI WIDTH 13.9 % (0-14.5); WHITE BLOOD COUNT 9.9 10*3/uL (4.8-10.8)
[2018-07-15 14:23] LABS: ALBUMIN 3.2 gm/dl (3.1-4.5); ALKALINE PHOSPHATASE 68 U/L (45-117); BUN 16 mg/dl (7-24); CHLORIDE 102 mmol/L (98-107); CREATININE 1.18 mg/dL (0.70-1.30); LDH 153 U/L (87-241); POTASSIUM 3.6 mmol/L (3.5-5.1); SGOT/AST 9 IU/L (3-35); SGPT/ALT 22 U/L (12-78); SODIUM 141 mmol/L (136-145); TOTAL PROTEIN 7.2 gm/dL (6.4-8.2)
== END | disposition home or self-care (01) ==
LOC: LAB 13:09
PROVIDERS: Urology
DX: D40.0 Neoplasm of uncertain behavior of prostate (principal); I10 Essential (primary) hypertension

== ENCOUNTER → 2018-07-27 | Outpatient (CLI) | payer OTHER ==
[2018-07-27 15:14] LABS: BASO % 0.3 % (0.0-1.0); EOS # 0.1 10*3/uL (0.0-0.4); EOS % 1.4 % (1.0-4.0); HEMATOCRIT 39.5 % (42.0-52.0); HEMOGLOBIN 13.1 g/dl (14.0-18.0); LYMPH # 1.3 10*3/uL (1.3-4.4); LYMPH % 13.4 % (27.0-41.0); MEAN CELL VOLUME 92.9 fl (80.0-94.0); MEAN CORPUSCULAR HGB 30.8 pg (27.0-31.0); MEAN CORPUSCULAR HGB CONC 33.2 g/dl (33.0-37.0); MEAN PLATELET VOLUME 8.7 fl (9.6-12.3); MONO # 0.6 10*3/uL (0.1-1.0); MONO % 5.7 % (3.0-9.0); NEUT # 7.8 10*3/uL (2.3-7.9); NEUT % 78.6 % (47.0-73.0); PLATELET COUNT AUTOMATED 224 10*3/uL (130-400); RED BLOOD COUNT 4.25 10*6/uL (4.50-5.90); RED CELL DISTRI WIDTH 14.1 % (0-14.5)
[2018-07-27 15:31] LABS: ALBUMIN 3.9 gm/dl (3.1-4.5); ALKALINE PHOSPHATASE 76 U/L (45-117); BUN 18 mg/dl (7-24); CHLORIDE 104 mmol/L (98-107); CREATININE 1.11 mg/dL (0.70-1.30); LDH 185 U/L (87-241); POTASSIUM 3.8 mmol/L (3.5-5.1); SGOT/AST 10 IU/L (3-35); SGPT/ALT 20 U/L (12-78); SODIUM 139 mmol/L (136-145); TOTAL PROTEIN 7.7 gm/dL (6.4-8.2)
[2018-07-27 15:38] LABS: BETA-HCG, TUMOR MARKER < 1.0 mIU/mL (<1)
== END | disposition home or self-care (01) ==
LOC: LAB 14:26 → US 15:00
PROVIDERS: Urology
DX: N43.3 Hydrocele, unspecified (principal)

== ENCOUNTER → 2018-12-02 | Outpatient (CLI) | payer OTHER ==
[~2018-12-02] MED LIST changes: +NAPROXEN DELAY375 MG PO
[2018-12-02 10:47] LABS: BASO % 0.6 % (0.0-1.0); EOS # 0.3 10*3/uL (0.0-0.4); EOS % 4.6 % (1.0-4.0); HEMATOCRIT 36.2 % (42.0-52.0); HEMOGLOBIN 12.1 g/dl (14.0-18.0); LYMPH # 1.1 10*3/uL (1.3-4.4); LYMPH % 14.8 % (27.0-41.0); MEAN CELL VOLUME 91.9 fl (80.0-94.0); MEAN CORPUSCULAR HGB 30.7 pg (27.0-31.0); MEAN CORPUSCULAR HGB CONC 33.4 g/dl (33.0-37.0); MEAN PLATELET VOLUME 9.2 fl (9.6-12.3); MONO # 0.6 10*3/uL (0.1-1.0); MONO % 7.6 % (3.0-9.0); NEUT # 5.2 10*3/uL (2.3-7.9); PLATELET COUNT AUTOMATED 252 10*3/uL (130-400); RED BLOOD COUNT 3.94 10*6/uL (4.50-5.90); RED CELL DISTRI WIDTH 13.2 % (0-14.5); WHITE BLOOD COUNT 7.2 10*3/uL (4.8-10.8)
[2018-12-02 11:17] LABS: ALBUMIN 3.6 gm/dl (3.1-4.5); ALKALINE PHOSPHATASE 71 U/L (45-117); BUN 12 mg/dl (7-24); CHLORIDE 105 mmol/L (98-107); CHOLESTEROL 163 mg/dL (<200); CREATININE 1.17 mg/dL (0.70-1.30); FREE T4 1.19 ng/dl (0.76-1.46); HDL CHOLESTEROL 33 mg/dl (40-60); LDL CHOLESTEROL 83 mg/dL (9-159); SGOT/AST 11 IU/L (3-35); SGPT/ALT 13 U/L (12-78); SODIUM 141 mmol/L (136-145); TOTAL PROTEIN 7.1 gm/dL (6.4-8.2); TRIGLYCERIDES 236 mg/dl (<150); VLDL CHOLESTEROL 47 mg/dL (6-40)
[2018-12-02 11:20] LABS: LDH 139 U/L (87-241)
[2018-12-02 11:21] LABS: BETA-HCG, TUMOR MARKER < 1.0 mIU/mL (<1)
[2018-12-02 12:30] LABS: VITAMIN D, 25-HYDROXY 39.8 ng/mL (30-100)
== END | disposition home or self-care (01) ==
LOC: LAB 10:06 → US 11:00
PROVIDERS: Internal Medicine; Urology
DX: Z12.5 Encounter for screening for malignant neoplasm of prostate (principal); Z13.1 Encounter for screening for diabetes mellitus; Z13.21 Encounter for screening for nutritional disorder; I10 Essential (primary) hypertension; E55.9 Vitamin D deficiency, unspecified; N50.9 Disorder of male genital organs, unspecified; E78.2 Mixed hyperlipidemia; N43.3 Hydrocele, unspecified

== ENCOUNTER → 2019-02-07 | Outpatient (CLI) | payer OTHER ==
[2019-02-07 15:34] LABS: LDH 182 U/L (87-241)
[2019-02-07 15:41] LABS: BETA-HCG, TUMOR MARKER < 1.0 mIU/mL (<1)
== END | disposition home or self-care (01) ==
LOC: LAB 13:36
PROVIDERS: Urology
DX: D40.10 Neoplasm of uncertain behavior of unspecified testis (principal)

== ENCOUNTER 2019-05-27 07:27 | Inpatient (IN) | payer OTHER ==
[2019-05-27] VITALS (8 sets, daily range): BP systolic 135–156; BP diastolic 61–77
[~2019-05-27] VITALS: Ht 170.1 cm; Wt 68.7 kg
[2019-05-27 07:50] LABS: BASO % 0.2 % (0.0-1.0); EOS # 0.1 10*3/uL (0.0-0.4); EOS % 0.8 % (1.0-4.0); HEMATOCRIT 37.8 % (42.0-52.0); HEMOGLOBIN 12.5 g/dl (14.0-18.0); LYMPH # 1.2 10*3/uL (1.3-4.4); LYMPH % 14.1 % (27.0-41.0); MEAN CELL VOLUME 93.6 fl (80.0-94.0); MEAN CORPUSCULAR HGB 30.9 pg (27.0-31.0); MEAN CORPUSCULAR HGB CONC 33.1 g/dl (33.0-37.0); MEAN PLATELET VOLUME 9.1 fl (9.6-12.3); MONO # 0.6 10*3/uL (0.1-1.0); MONO % 7.1 % (3.0-9.0); NEUT # 6.8 10*3/uL (2.3-7.9); NEUT % 77.3 % (47.0-73.0); PLATELET COUNT AUTOMATED 220 10*3/uL (130-400); RED BLOOD COUNT 4.04 10*6/uL (4.50-5.90); RED CELL DISTRI WIDTH 13.2 % (0-14.5); WHITE BLOOD COUNT 8.8 10*3/uL (4.8-10.8)
[2019-05-27 08:02] LABS: ACT PARTIAL THROMBO TIME 24.2 SECONDS (20.0-32.1); INTERNATIONAL NORM RATIO 0.9 (2.0-3.5)
[2019-05-27 08:09] LABS: ALBUMIN 3.9 gm/dl (3.1-4.5); ALKALINE PHOSPHATASE 59 U/L (45-117); BUN 18 mg/dl (7-24); CHLORIDE 107 mmol/L (98-107); CREATININE 1.12 mg/dL (0.70-1.30); SGOT/AST 11 IU/L (3-35); SGPT/ALT 17 U/L (12-78); SODIUM 141 mmol/L (136-145); TOTAL PROTEIN 7.6 gm/dL (6.4-8.2)
[2019-05-27 08:19] LABS: TROPONIN I < 0.015 ng/ml (<0.045)
--- NOTE | 2019-05-27 08:59 | NUR ---
PT RESTING IN BED WITH EYES CLOSED. IN NO ACUTE DISTRESS. SIDERAILS UP X2
--- NOTE | 2019-05-27 10:18 | NUR ---
[facility] , under the services of HELENA Fenton MD with a diagnosis of CHEST PAIN. Chief complaint is CHEST PAIN. Patient arrived via bed from ER. Monitor applied. Initial assessment completed. Vital signs taken and recorded. HELENA FENTON MD notified of admission to the unit. Orders received. See assessment for past medical history, medications and allergies. Patient and/or family oriented to unit. [facility] visitation policy reviewed. Clothing/patient valuable form completed. ADAM CORDOVA
[2019-05-27] MEDS ORDERED: PROAIR HFA8.5 GM INH (10:37)
[2019-05-28] VITALS: BP 133/55
[2019-05-28 08:00] VITALS: BP 162/71
[2019-05-28 12:00] VITALS: BP 141/56
[2019-05-28 16:00] VITALS: BP 153/59
[2019-05-28 20:00] VITALS: BP 142/87
[2019-05-29] VITALS: BP 156/76
[2019-05-29 07:30] VITALS: BP 138/78
--- NOTE | 2019-05-29 07:30 | NUR ---
ASSESMENT DONE AND DOCUMENTED. PT DENIES CHEST PAIN AT TIME OF ASSESMENT. VERY PLEASENT. PT STATES "IM GOING TO ORDER BREAKFAST, IM STARVING" WILL CONTINUE TO MONITOR [facility]
--- NOTE | 2019-05-29 10:30 | NUR ---
Mail Sorter in to talk to patient. Patient states lives at home with his mother. There are 2 steps in the home. Physician: Dr. Ethan Katz Pharm[facility]: [facility] Home health services: none Patient's level of ADLs: INDEPENDENT Patient has working utilities: yes DME: [employer] Follow-up physician's appointment after d/c: he prefers to make his own follow up appt after discharge Does patient want to access PORTAL?: no Discharge plan discussed with patient. He lives at home with his mother. He is independent in his ADLs and ambulation. Discussed home health care services and he denies any home needs at this time. When medically stable he will be discharged to home. His mother will provide transportation on discharge. Per patient he is supposed to be discharged to home tomorrow. JESSICA BOLES
[2019-05-29 12:07] VITALS: BP 158/72
--- NOTE | 2019-05-29 12:07 | NUR ---
PT SHOWS NO SIGNS OF DISCOMFORT. RESTING IN BED READING THE PAPER. WILL CONTINUE TO MONITOR. AMILCAR TOWNSEND
--- NOTE | 2019-05-29 13:00 | NUR ---
PT. RESTING PEACEFULLY. READING PAPER. NO COMPLAINTS AT THIS TIME. REPORT GIVEN TO TAMMY. AMILCAR PERKINS SPNRCC
[2019-05-29 16:00] VITALS: BP 148/69
[2019-05-29 20:00] VITALS: BP 145/87
[2019-05-30] VITALS: BP 134/58
--- NOTE | 2019-05-30 03:49 | NUR ---
PT ASLEEP IN BED. RESPIRATIONS EASY. NO S/S OF DISTRESS NOTED. WILL MONITOR. CALL LIGHT IN REACH.
[2019-05-30 08:00] VITALS: BP 148/75
[2019-05-30] MEDS ORDERED: DOXYCYCLINE100 M3 PO (08:16)
[2019-05-30] MEDS ORDERED: PREDNISONE5 MG PO (08:16)
[2019-05-30] MEDS ORDERED: Ipratropium Brom3 ML NEB (08:16)
--- NOTE | 2019-05-30 11:50 | NUR ---
Discharge instructions reviewed with patient/family. Patient receptive and verbalizes understanding. Follow-up care arranged. Written instructions given to patient/family. 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 DORCAS CUBA
== END 2019-05-30 11:50 | disposition home or self-care (01) | DRG 145 ==
LOC: ED 07:27 → 4E 09:39 → EDHOLD 09:39 → 4E 09:42
PROVIDERS: Emergency Medicine; ADMIT Internal Medicine
DX: J20.9 Acute bronchitis, unspecified (principal); J44.0 Chronic obstructive pulmonary disease with (acute) lower respiratory infection; J44.1 Chronic obstructive pulmonary disease with (acute) exacerbation; F31.9 Bipolar disorder, unspecified; R07.89 Other chest pain; K59.00 Constipation, unspecified; K21.9 Gastro-esophageal reflux disease without esophagitis; F41.1 Generalized anxiety disorder; N40.0 Benign prostatic hyperplasia without lower urinary tract symptoms; K57.90 Diverticulosis of intestine, part unspecified, without perforation or abscess without bleeding; Z88.7 Allergy status to serum and vaccine; Z88.8 Allergy status to other drugs, medicaments and biological substances; Z88.4 Allergy status to anesthetic agent; Z88.1 Allergy status to other antibiotic agents; Z91.041 Radiographic dye allergy status; Z91.012 Allergy to eggs; Z88.5 Allergy status to narcotic agent; Z88.0 Allergy status to penicillin; Z91.013 Allergy to seafood; Z82.49 Family history of ischemic heart disease and other diseases of the circulatory system; Z83.6 Family history of other diseases of the respiratory system; Z90.49 Acquired absence of other specified parts of digestive tract

== ENCOUNTER → 2019-06-12 | Outpatient (CLI) | payer OTHER ==
[~2019-06-12] MED LIST changes: +Ipratropium Brom3 ML NEB; +PROAIR HFA8.5 GM INH
[2019-06-12 10:57] LABS: LDH 156 U/L (87-241)
[2019-06-12 10:59] LABS: BETA-HCG, TUMOR MARKER < 1.0 mIU/mL (<1)
== END | disposition home or self-care (01) ==
LOC: US 10:06 → LAB 10:06 → US 12:30
PROVIDERS: Nurse Practitioner Family
DX: N50.89 Other specified disorders of the male genital organs (principal)

== ENCOUNTER → 2019-09-26 | Outpatient (CLI) | payer OTHER ==
[2019-09-26 10:41] LABS: BASO % 0.4 % (0.0-1.0); EOS # 0.6 10*3/uL (0.0-0.4); EOS % 6.9 % (1.0-4.0); HEMATOCRIT 38.5 % (42.0-52.0); HEMOGLOBIN 12.6 g/dl (14.0-18.0); LYMPH # 1.4 10*3/uL (1.3-4.4); LYMPH % 14.8 % (27.0-41.0); MEAN CELL VOLUME 93.4 fl (80.0-94.0); MEAN CORPUSCULAR HGB 30.6 pg (27.0-31.0); MEAN CORPUSCULAR HGB CONC 32.7 g/dl (33.0-37.0); MEAN PLATELET VOLUME 9.5 fl (9.6-12.3); MONO # 0.7 10*3/uL (0.1-1.0); MONO % 7.1 % (3.0-9.0); NEUT # 6.5 10*3/uL (2.3-7.9); NEUT % 70.5 % (47.0-73.0); PLATELET COUNT AUTOMATED 244 10*3/uL (130-400); RED BLOOD COUNT 4.12 10*6/uL (4.50-5.90); WHITE BLOOD COUNT 9.2 10*3/uL (4.8-10.8)
[2019-09-26 11:12] LABS: ALBUMIN 3.6 gm/dl (3.1-4.5); BUN 12 mg/dl (7-24); CHLORIDE 104 mmol/L (98-107); CHOLESTEROL 192 mg/dL (<200); CREATININE 1.29 mg/dL (0.70-1.30); HDL CHOLESTEROL 35 mg/dl (40-60); POTASSIUM 3.8 mmol/L (3.5-5.1); SGOT/AST 18 IU/L (3-35); SODIUM 139 mmol/L (136-145)
[2019-09-26 11:21] LABS: ALKALINE PHOSPHATASE 68 U/L (45-117); FREE T4 1.26 ng/dl (0.76-1.46); LDL CHOLESTEROL 100 mg/dL (9-159); SGPT/ALT 25 U/L (12-78); TOTAL PROTEIN 7.6 gm/dL (6.4-8.2); TRIGLYCERIDES 283 mg/dl (<150); VLDL CHOLESTEROL 57 mg/dL (6-40)
[2019-09-26 12:05] LABS: VITAMIN D, 25-HYDROXY 27.3 ng/mL (30-100)
== END | disposition home or self-care (01) ==
LOC: LAB 10:03
PROVIDERS: Internal Medicine
DX: I10 Essential (primary) hypertension (principal); E55.9 Vitamin D deficiency, unspecified; Z13.1 Encounter for screening for diabetes mellitus; Z13.220 Encounter for screening for lipoid disorders

== ENCOUNTER → 2019-11-22 | Day surgery (SDC) | payer OTHER ==
[~2019-11-22] VITALS: Ht 170.1 cm; Wt 70.8 kg
[2019-11-22 09:20] VITALS: BP 146/70
[2019-11-22 11:02] VITALS: BP 152/73
[2019-11-22 11:15] VITALS: BP 140/67
[2019-11-22 11:28] VITALS: BP 152/68
== END | disposition home or self-care (01) ==
LOC: SDC 10-12 11:00
DX: H25.811 Combined forms of age-related cataract, right eye (principal); I10 Essential (primary) hypertension; J43.9 Emphysema, unspecified; F41.9 Anxiety disorder, unspecified; F32.9 Major depressive disorder, single episode, unspecified; K21.9 Gastro-esophageal reflux disease without esophagitis; Z83.6 Family history of other diseases of the respiratory system

== ENCOUNTER → 2019-12-20 | Day surgery (SDC) | payer OTHER ==
[~2019-12-20] VITALS: Ht 170.1 cm; Wt 70.8 kg
[2019-12-20 10:15] VITALS: BP 132/72
[2019-12-20 11:45] VITALS: BP 136/69
[2019-12-20 12:00] VITALS: BP 134/66
[2019-12-20 12:13] VITALS: BP 138/67
== END | disposition home or self-care (01) ==
LOC: SDC 12-15 11:00
DX: H25.812 Combined forms of age-related cataract, left eye (principal); J43.9 Emphysema, unspecified; F41.9 Anxiety disorder, unspecified; F32.9 Major depressive disorder, single episode, unspecified; K21.9 Gastro-esophageal reflux disease without esophagitis; Z88.5 Allergy status to narcotic agent; Z88.8 Allergy status to other drugs, medicaments and biological substances; Z79.899 Other long term (current) drug therapy; Z83.6 Family history of other diseases of the respiratory system

== ENCOUNTER → 2020-01-01 | Outpatient (CLI) | payer OTHER ==
[2020-01-01 10:11] LABS: BILIRUBIN NEGATIVE (NEGATIVE); CLARITY CLEAR (CLEAR); COLOR YELLOW (YELLOW); GLUCOSE NEGATIVE (NEGATIVE); KETONE NEGATIVE (NEGATIVE)
[2020-01-01 10:11] LABS: BASO % 0.5 % (0.0-1.0); EOS # 0.2 10*3/uL (0.0-0.4); EOS % 2.9 % (1.0-4.0); HEMATOCRIT 36.7 % (42.0-52.0); LYMPH # 1.3 10*3/uL (1.3-4.4); LYMPH % 15.2 % (27.0-41.0); MEAN CELL VOLUME 91.3 fl (80.0-94.0); MEAN CORPUSCULAR HGB 30.3 pg (27.0-31.0); MEAN CORPUSCULAR HGB CONC 33.2 g/dl (33.0-37.0); MEAN PLATELET VOLUME 9.6 fl (9.6-12.3); MONO # 0.7 10*3/uL (0.1-1.0); MONO % 8.6 % (3.0-9.0); NEUT % 71.5 % (47.0-73.0); PLATELET COUNT AUTOMATED 211 10*3/uL (130-400); RED BLOOD COUNT 4.02 10*6/uL (4.50-5.90); RED CELL DISTRI WIDTH 13.7 % (0-14.5); WHITE BLOOD COUNT 8.4 10*3/uL (4.8-10.8)
[2020-01-01 10:12] LABS: BACTERIA TRACE; BLOOD NEGATIVE (NEGATIVE); EPITHELIAL CELLS 0-2; LEUKO ESTERASE NEGATIVE (NEGATIVE); NITRITE NEGATIVE (NEGATIVE); RBC 0-2 rbc/hpf (0-2); UROBILINOGEN 0.2 E.U./dl (0.2-1.0)
[2020-01-01 10:39] LABS: ALBUMIN 3.5 gm/dl (3.1-4.5); BUN 10 mg/dl (7-24); CHLORIDE 102 mmol/L (98-107); CREATININE 1.08 mg/dL (0.70-1.30); POTASSIUM 3.7 mmol/L (3.5-5.1); SGOT/AST 14 IU/L (3-35); SGPT/ALT 23 U/L (12-78); SODIUM 135 mmol/L (136-145)
[2020-01-01 10:42] LABS: ALKALINE PHOSPHATASE 78 U/L (45-117); TOTAL PROTEIN 7.6 gm/dL (6.4-8.2)
== END | disposition home or self-care (01) ==
LOC: US 12-19 15:00
PROVIDERS: Urology
DX: N43.3 Hydrocele, unspecified (principal); N44.2 Benign cyst of testis; N50.3 Cyst of epididymis; D40.0 Neoplasm of uncertain behavior of prostate; N28.89 Other specified disorders of kidney and ureter

== ENCOUNTER → 2020-02-26 | Outpatient (CLI) | payer OTHER | END | disposition home or self-care (01) | LOC: MRI 10:00 | DX: K57.30 Diverticulosis of large intestine without perforation or abscess without bleeding (principal); N50.9 Disorder of male genital organs, unspecified ==

== ENCOUNTER 2020-03-13 16:25 | Emergency (ER) | payer OTHER ==
[2020-03-13 16:47] LABS: BASO % 0.3 % (0.0-1.0); EOS # 0.3 10*3/uL (0.0-0.4); EOS % 4.2 % (1.0-4.0); HEMATOCRIT 37.3 % (42.0-52.0); LYMPH # 1.2 10*3/uL (1.3-4.4); LYMPH % 16.2 % (27.0-41.0); MEAN CELL VOLUME 89.7 fl (80.0-94.0); MEAN CORPUSCULAR HGB 29.8 pg (27.0-31.0); MEAN CORPUSCULAR HGB CONC 33.2 g/dl (33.0-37.0); MEAN PLATELET VOLUME 9.1 fl (9.6-12.3); MONO # 0.6 10*3/uL (0.1-1.0); MONO % 8.1 % (3.0-9.0); NEUT # 5.4 10*3/uL (2.3-7.9); NEUT % 70.8 % (47.0-73.0); PLATELET COUNT AUTOMATED 225 10*3/uL (130-400); RED BLOOD COUNT 4.16 10*6/uL (4.50-5.90); RED CELL DISTRI WIDTH 14.1 % (0-14.5); WHITE BLOOD COUNT 7.6 10*3/uL (4.8-10.8)
[2020-03-13 17:02] LABS: ALBUMIN 3.5 gm/dl (3.1-4.5); ALKALINE PHOSPHATASE 93 U/L (45-117); BUN 10 mg/dl (7-24); CHLORIDE 103 mmol/L (98-107); CREATININE 1.27 mg/dL (0.70-1.30); POTASSIUM 3.6 mmol/L (3.5-5.1); SGOT/AST 17 IU/L (3-35); SGPT/ALT 26 U/L (12-78); SODIUM 139 mmol/L (136-145); TOTAL PROTEIN 7.7 gm/dL (6.4-8.2)
[2020-03-13 17:03] LABS: ACT PARTIAL THROMBO TIME 23.4 SECONDS (20.0-32.1)
[2020-03-13 17:03] LABS: TROPONIN I < 0.015 ng/ml (<0.045)
[2020-03-13] MEDS ORDERED: PREDNISONE10 MG PO (17:26)
[2020-03-13] MEDS ORDERED: AVPAK AZITHROM250 MG PO (17:26)
[2020-03-13 17:42] VITALS: BP 144/73
== END 2020-03-13 17:44 | disposition home or self-care (01) ==
LOC: ED 16:25
PROVIDERS: Family Medicine
DX: R09.1 Pleurisy (principal); R07.9 Chest pain, unspecified; R05 Cough; Z88.0 Allergy status to penicillin; Z91.012 Allergy to eggs; Z91.013 Allergy to seafood; Z91.018 Allergy to other foods; Z88.6 Allergy status to analgesic agent; Z88.1 Allergy status to other antibiotic agents; Z91.041 Radiographic dye allergy status; Z79.899 Other long term (current) drug therapy

== ENCOUNTER 2020-09-20 12:26 | Observation (INO) | payer OTHER ==
[~2020-09-20] VITALS: Ht 170.1 cm; Wt 75.9 kg
[~2020-09-20 12:26] MED LIST changes: +AVPAK AZITHROM250 MG PO
[2020-09-20 12:33] VITALS: BP 147/68
[2020-09-20 12:53] LABS: BASO # 0.1 10*3/uL (0.0-0.1); BASO % 0.5 % (0.0-1.0); EOS # 0.4 10*3/uL (0.0-0.4); EOS % 4.5 % (1.0-4.0); HEMATOCRIT 35.9 % (42.0-52.0); LYMPH # 1.5 10*3/uL (1.3-4.4); LYMPH % 15.6 % (27.0-41.0); MEAN CELL VOLUME 93.5 fl (80.0-94.0); MEAN CORPUSCULAR HGB 31.3 pg (27.0-31.0); MEAN CORPUSCULAR HGB CONC 33.4 g/dl (33.0-37.0); MONO # 0.7 10*3/uL (0.1-1.0); MONO % 6.8 % (3.0-9.0); NEUT # 7.1 10*3/uL (2.3-7.9); PLATELET COUNT AUTOMATED 232 10*3/uL (130-400); RED BLOOD COUNT 3.84 10*6/uL (4.50-5.90); RED CELL DISTRI WIDTH 14.3 % (0-14.5); WHITE BLOOD COUNT 9.9 10*3/uL (4.8-10.8)
[2020-09-20 13:11] LABS: ALBUMIN 3.6 gm/dl (3.1-4.5); ALKALINE PHOSPHATASE 88 U/L (45-117); BUN 9 mg/dl (7-24); CHLORIDE 105 mmol/L (98-107); CREATININE 1.27 mg/dL (0.70-1.30); LIPASE 119 U/L (73-393); POTASSIUM 3.8 mmol/L (3.5-5.1); SGOT/AST 12 IU/L (3-35); SGPT/ALT 22 U/L (12-78); SODIUM 137 mmol/L (136-145); TOTAL PROTEIN 7.5 gm/dL (6.4-8.2)
[2020-09-20 13:17] LABS: TROPONIN I < 0.015 ng/ml (<0.045)
[2020-09-20 13:30] LABS: ACT PARTIAL THROMBO TIME 22.8 SECONDS (20.0-32.1)
[2020-09-20 14:02] VITALS: BP 155/75
[2020-09-20 14:30] VITALS: BP 157/79
[2020-09-20 14:57] VITALS: BP 154/81
[2020-09-20 16:00] VITALS: BP 151/75
[2020-09-20 20:00] VITALS: BP 134/81; BP 136/75
[2020-09-21] VITALS: BP 129/67
[2020-09-21 08:25] VITALS: BP 142/78
[2020-09-21 12:00] VITALS: BP 144/70
[2020-09-21 16:00] VITALS: BP 142/69
[2020-09-21 20:00] VITALS: BP 143/69
[2020-09-22 16:00] VITALS: BP 153/69
[2020-09-22 20:00] VITALS: BP 149/78
[2020-09-23] VITALS: BP 150/76
[2020-09-23 08:00] VITALS: BP 164/79
[2020-09-23 12:00] VITALS: BP 147/70
== END 2020-09-23 15:56 | disposition home or self-care (01) ==
LOC: ED 12:26 → 4E 14:59 → EDHOLD 14:59 → 4E 15:11
PROVIDERS: Physician Assistant; ADMIT Internal Medicine; ATTEND Internal Medicine
DX: J44.1 Chronic obstructive pulmonary disease with (acute) exacerbation (principal); Z20.822 Contact with and (suspected) exposure to COVID-19; N40.1 Benign prostatic hyperplasia with lower urinary tract symptoms; F31.9 Bipolar disorder, unspecified; F41.1 Generalized anxiety disorder; R33.8 Other retention of urine; K21.9 Gastro-esophageal reflux disease without esophagitis; K57.90 Diverticulosis of intestine, part unspecified, without perforation or abscess without bleeding; J30.1 Allergic rhinitis due to pollen; Z90.49 Acquired absence of other specified parts of digestive tract; Z90.89 Acquired absence of other organs

== ENCOUNTER → 2020-10-17 | Outpatient (CLI) | payer OTHER ==
[2020-10-17 15:03] LABS: BASO % 0.3 % (0.0-1.0); EOS # 0.6 10*3/uL (0.0-0.4); EOS % 5.8 % (1.0-4.0); HEMATOCRIT 33.4 % (42.0-52.0); LYMPH # 1.5 10*3/uL (1.3-4.4); LYMPH % 14.7 % (27.0-41.0); MEAN CORPUSCULAR HGB 31.1 pg (27.0-31.0); MEAN CORPUSCULAR HGB CONC 34.1 g/dl (33.0-37.0); MONO # 0.9 10*3/uL (0.1-1.0); MONO % 8.9 % (3.0-9.0); NEUT # 7.1 10*3/uL (2.3-7.9); NEUT % 69.8 % (47.0-73.0); PLATELET COUNT AUTOMATED 287 10*3/uL (130-400); RED BLOOD COUNT 3.67 10*6/uL (4.50-5.90); RED CELL DISTRI WIDTH 14.6 % (0-14.5); WHITE BLOOD COUNT 10.1 10*3/uL (4.8-10.8)
[2020-10-17 15:25] LABS: ALBUMIN 3.2 gm/dl (3.1-4.5); ALKALINE PHOSPHATASE 89 U/L (45-117); BUN 8 mg/dl (7-24); CHLORIDE 101 mmol/L (98-107); CREATININE 1.18 mg/dL (0.70-1.30); LDH 167 U/L (87-241); POTASSIUM 3.6 mmol/L (3.5-5.1); SGOT/AST 13 IU/L (3-35); SGPT/ALT 25 U/L (12-78); SODIUM 134 mmol/L (136-145); TOTAL PROTEIN 7.2 gm/dL (6.4-8.2)
[2020-10-17 15:28] LABS: BETA-HCG, TUMOR MARKER < 1.0 mIU/mL (<1)
== END | disposition home or self-care (01) ==
LOC: LAB 13:55 → US 14:00
PROVIDERS: ATTEND Urology
DX: N44.2 Benign cyst of testis (principal)

== ENCOUNTER 2021-01-02 10:33 | Inpatient (IN) | payer OTHER ==
[~2021-01-02] VITALS: Ht 170.2 cm; Wt 75.8 kg
[2021-01-02 10:49] VITALS: BP 131/72
[2021-01-02 11:26] VITALS: BP 138/75
[2021-01-02 12:47] LABS: BASO % 0.3 % (0.0-1.0); EOS # 0.3 10*3/uL (0.0-0.4); EOS % 3.5 % (1.0-4.0); HEMATOCRIT 36.4 % (42.0-52.0); LYMPH # 1.1 10*3/uL (1.3-4.4); LYMPH % 12.1 % (27.0-41.0); MEAN CELL VOLUME 90.5 fl (80.0-94.0); MEAN CORPUSCULAR HGB 30.3 pg (27.0-31.0); MEAN CORPUSCULAR HGB CONC 33.5 g/dl (33.0-37.0); MEAN PLATELET VOLUME 9.1 fl (9.6-12.3); MONO # 0.6 10*3/uL (0.1-1.0); MONO % 6.6 % (3.0-9.0); NEUT # 7.3 10*3/uL (2.3-7.9); NEUT % 77.2 % (47.0-73.0); PLATELET COUNT AUTOMATED 221 10*3/uL (130-400); RED BLOOD COUNT 4.02 10*6/uL (4.50-5.90); RED CELL DISTRI WIDTH 13.5 % (0-14.5); WHITE BLOOD COUNT 9.4 10*3/uL (4.8-10.8)
[2021-01-02 13:03] LABS: BUN 12 mg/dl (7-24); CHLORIDE 102 mmol/L (98-107); CREATININE 0.88 mg/dL (0.70-1.30); POTASSIUM 3.9 mmol/L (3.5-5.1); SODIUM 136 mmol/L (136-145)
[2021-01-02 13:42] VITALS: BP 144/80
[2021-01-02 15:15] VITALS: BP 136/77; BP 153/74
[2021-01-02 20:00] VITALS: BP 144/65
[2021-01-03] VITALS: BP 154/65
[2021-01-03 08:00] VITALS: BP 146/70
[2021-01-03 12:48] VITALS: BP 139/76
[2021-01-03 16:00] VITALS: BP 131/89
[2021-01-03 20:00] VITALS: BP 133/64
[2021-01-04] VITALS: BP 135/63
[2021-01-04] MEDS ORDERED: PREDNISONE5 MG PO (05:56)
[2021-01-04 08:20] VITALS: BP 124/69
[2021-01-04 12:21] VITALS: BP 174/82
== END 2021-01-04 14:06 | disposition home or self-care (01) | DRG 203 ==
LOC: ED 10:33 → 4E 12:54 → EDHOLD 12:54 → 4E 14:42
PROVIDERS: Emergency Medicine; ADMIT Internal Medicine; ATTEND Internal Medicine
PROC: 4A02XM4 Measurement of Cardiac Total Activity, External Approach (ICD-10-PCS; principal; 2021-01-02)
PROC: 3E073KZ Introduction of Other Diagnostic Substance into Coronary Artery, Percutaneous Approach (ICD-10-PCS; 2021-01-02)
DX: R07.89 Other chest pain (principal); J45.41 Moderate persistent asthma with (acute) exacerbation; J44.1 Chronic obstructive pulmonary disease with (acute) exacerbation; F41.1 Generalized anxiety disorder; R00.0 Tachycardia, unspecified; K21.00 Gastro-esophageal reflux disease with esophagitis, without bleeding; N40.1 Benign prostatic hyperplasia with lower urinary tract symptoms; F31.9 Bipolar disorder, unspecified; R07.2 Precordial pain; I10 Essential (primary) hypertension; R33.8 Other retention of urine; T38.0X5A Adverse effect of glucocorticoids and synthetic analogues, initial encounter; R73.9 Hyperglycemia, unspecified; Y92.238 Other place in hospital as the place of occurrence of the external cause; Z88.0 Allergy status to penicillin; Z88.1 Allergy status to other antibiotic agents; Z88.7 Allergy status to serum and vaccine; Z88.4 Allergy status to anesthetic agent; Z91.041 Radiographic dye allergy status; Z91.012 Allergy to eggs; Z91.010 Allergy to peanuts; Z91.013 Allergy to seafood; Z91.048 Other nonmedicinal substance allergy status; Z88.6 Allergy status to analgesic agent; Z88.8 Allergy status to other drugs, medicaments and biological substances; Z87.01 Personal history of pneumonia (recurrent); Z90.49 Acquired absence of other specified parts of digestive tract; Z82.5 Family history of asthma and other chronic lower respiratory diseases; Z82.49 Family history of ischemic heart disease and other diseases of the circulatory system

== ENCOUNTER → 2022-09-23 | Outpatient (CLI) | payer OTHER ==
[2022-09-23 15:11] LABS: BASO % 0.5 % (0.0-1.0); EOS # 0.6 10*3/uL (0.0-0.4); EOS % 6.6 % (1.0-4.0); HEMATOCRIT 32.8 % (42.0-52.0); LYMPH # 1.5 10*3/uL (1.3-4.4); LYMPH % 16.8 % (27.0-41.0); MEAN CELL VOLUME 91.1 fl (80.0-94.0); MEAN CORPUSCULAR HGB 30.3 pg (27.0-31.0); MEAN CORPUSCULAR HGB CONC 33.2 g/dl (33.0-37.0); MEAN PLATELET VOLUME 9.1 fl (9.6-12.3); MONO # 0.6 10*3/uL (0.1-1.0); MONO % 6.9 % (3.0-9.0); NEUT % 68.9 % (47.0-73.0); PLATELET COUNT AUTOMATED 230 10*3/uL (130-400); RED CELL DISTRI WIDTH 14.4 % (0-14.5); WHITE BLOOD COUNT 8.6 10*3/uL (4.8-10.8)
[2022-09-23 15:38] LABS: FREE T4 1.32 ng/dl (0.89-1.76); POTASSIUM 3.9 mmol/L (3.4-5.1); THYROID STIM HORMONE (HS) 2.045 uIU/ml (0.550-4.780); TOTAL PROTEIN 7.3 gm/dL (6.0-8.0)
[2022-09-23 16:16] LABS: VITAMIN D, 25-HYDROXY 70.6 ng/mL (30-100)
== END | disposition home or self-care (01) ==
LOC: LAB 14:45
PROVIDERS: ATTEND Internal Medicine
DX: Z13.0 Encounter for screening for diseases of the blood and blood-forming organs and certain disorders involving the immune mechanism (principal); Z13.1 Encounter for screening for diabetes mellitus; Z13.21 Encounter for screening for nutritional disorder; Z13.220 Encounter for screening for lipoid disorders; Z13.228 Encounter for screening for other metabolic disorders; Z13.6 Encounter for screening for cardiovascular disorders; E11.65 Type 2 diabetes mellitus with hyperglycemia; I10 Essential (primary) hypertension; E55.9 Vitamin D deficiency, unspecified; R06.02 Shortness of breath

== ENCOUNTER 2023-11-08 16:42 | Emergency (ER) | payer OTHER ==
[~2023-11-08] VITALS: Ht 167.6 cm; Wt 68.0 kg
[~2023-11-08 16:42] MED LIST changes: +AZITHROMYCIN500 M2 PO; +FLOMAX0.4 MG PO; +Flomax PO
[2023-11-08 17:00] VITALS: BP 119/37
[2023-11-08 17:31] LABS: BASO % 0.4 % (0.0-1.0); EOS # 0.5 10*3/uL (0.0-0.4); EOS % 5.6 % (1.0-4.0); HEMATOCRIT 33.5 % (42.0-52.0); LYMPH % 12.3 % (27.0-41.0); MEAN CELL VOLUME 89.8 fl (80.0-94.0); MEAN CORPUSCULAR HGB 29.8 pg (27.0-31.0); MEAN CORPUSCULAR HGB CONC 33.1 g/dl (33.0-37.0); MEAN PLATELET VOLUME 9.2 fl (9.6-12.3); MONO # 0.6 10*3/uL (0.1-1.0); MONO % 7.6 % (3.0-9.0); NEUT # 6.2 10*3/uL (2.3-7.9); PLATELET COUNT AUTOMATED 190 10*3/uL (130-400); RED BLOOD COUNT 3.73 10*6/uL (4.50-5.90); RED CELL DISTRI WIDTH 13.2 % (0-14.5); WHITE BLOOD COUNT 8.4 10*3/uL (4.8-10.8)
[2023-11-08 18:15] LABS: POTASSIUM 4.3 mmol/L (3.4-5.1); TOTAL PROTEIN 7.1 gm/dL (6.0-8.0)
[2023-11-08] MEDS ORDERED: PREDNISONE20 M1 PO (18:39)
[2023-11-08] MEDS ORDERED: VIBRAMYCIN100 MG PO (18:39)
[2023-11-08] MEDS ORDERED: ONDANSETRON4 MG SL (18:42)
== END 2023-11-08 18:59 | disposition home or self-care (01) ==
LOC: ED 16:42
PROVIDERS: Internal Medicine
DX: J44.9 Chronic obstructive pulmonary disease, unspecified (principal); R42 Dizziness and giddiness; R11.2 Nausea with vomiting, unspecified; F41.9 Anxiety disorder, unspecified; K21.9 Gastro-esophageal reflux disease without esophagitis; Z91.041 Radiographic dye allergy status; Z88.0 Allergy status to penicillin; Z91.012 Allergy to eggs; Z88.7 Allergy status to serum and vaccine; Z88.8 Allergy status to other drugs, medicaments and biological substances; Z91.010 Allergy to peanuts; Z91.013 Allergy to seafood; Z88.6 Allergy status to analgesic agent; Z88.5 Allergy status to narcotic agent; Z98.890 Other specified postprocedural states; Z90.49 Acquired absence of other specified parts of digestive tract; F17.200 Nicotine dependence, unspecified, uncomplicated

== ENCOUNTER 2024-03-21 12:04 | Inpatient (IN) | payer OTHER ==
[~2024-03-21] VITALS: Ht 182.8 cm; Wt 66.5 kg
[~2024-03-21 12:04] MED LIST changes: +CEFUROXIME AXE250 MG PO; +ONDANSETRON4 MG SL
[2024-03-21 12:33] VITALS: BP 94/56
[2024-03-21] MEDS ORDERED: Albuterol Sulf/Ipratropium 3 ML VIAL NEB ONE (13:50)
[2024-03-21] MEDS ORDERED: methylPREDNISolone sod succ 125 MG VIAL IV ONE (13:50)
[2024-03-21] MEDS ORDERED: SODIUM CHLORIDE 0.9% 1,000 ML IV ONE (13:50)
[2024-03-21 14:09] LABS: BASO % 0.5 % (0.0-1.0); EOS % 11.7 % (1.0-4.0); HEMATOCRIT 34.4 % (42.0-52.0); LYMPH # 0.9 10*3/uL (1.3-4.4); LYMPH % 11.2 % (27.0-41.0); MEAN CORPUSCULAR HGB 30.8 pg (27.0-31.0); MEAN CORPUSCULAR HGB CONC 33.1 g/dl (33.0-37.0); MONO # 0.6 10*3/uL (0.1-1.0); NEUT # 5.8 10*3/uL (2.3-7.9); NEUT % 69.2 % (47.0-73.0); PLATELET COUNT AUTOMATED 213 10*3/uL (130-400); RED CELL DISTRI WIDTH 13.2 % (0-14.5); WHITE BLOOD COUNT 8.4 10*3/uL (4.8-10.8)
[2024-03-21 14:36] LABS: POTASSIUM 4.3 mmol/L (3.4-5.1); TOTAL PROTEIN 7.3 gm/dL (6.0-8.0)
[2024-03-21] MEDS ORDERED: CLOTRIMAZOLE 15 GM TUBE T ONE (15:05)
[2024-03-21] MEDS ORDERED: Ceftriaxone Sodium 1 GM/10 ML SYR IV ONE (15:05)
[2024-03-21] MEDS ORDERED: AZITHROMYCIN 250 ML IV ONE (15:05)
[2024-03-21 16:42] VITALS: BP 103/59
[2024-03-21] MEDS ORDERED: DUTASTERIDE0.5 MG PO (18:25)
[2024-03-21] MEDS ORDERED: ZESTORETIC 20-1 EACH PO (18:26)
[2024-03-21] MEDS ORDERED: ALPRAZolam 0.25 MG TAB PO PRN (19:25)
[2024-03-21] MEDS ORDERED: Albuterol Sulf/Ipratropium 3 ML VIAL NEB SCH (19:40)
[2024-03-21 20:27] VITALS: BP 123/51
[2024-03-21] MEDS ORDERED: BENZTROPINE MESYLATE 1 MG TAB PO SCH (22:00)
[2024-03-21] MEDS ORDERED: methylPREDNISolone sod succ 40 MG VIAL IV SCH (22:00)
[2024-03-21] MEDS ORDERED: Tamsulosin Hydrochloride 0.4 MG CAP PO SCH (22:00)
[2024-03-21 23:20] VITALS: BP 130/51
[2024-03-22] MEDS ORDERED: OMEPRAZOLE 20 MG CAP PO SCH (05:30)
[2024-03-22] MEDS ORDERED: SODIUM CHLORIDE 0.9% 1,000 ML IV ONE (06:40)
[2024-03-22 06:49] LABS: HEMATOCRIT 30.5 % (42.0-52.0); MEAN CELL VOLUME 91.9 fl (80.0-94.0); MEAN CORPUSCULAR HGB 30.7 pg (27.0-31.0); MEAN CORPUSCULAR HGB CONC 33.4 g/dl (33.0-37.0); MEAN PLATELET VOLUME 9.4 fl (9.6-12.3); PLATELET COUNT AUTOMATED 213 10*3/uL (130-400); RED BLOOD COUNT 3.32 10*6/uL (4.50-5.90); RED CELL DISTRI WIDTH 12.7 % (0-14.5); WHITE BLOOD COUNT 7.5 10*3/uL (4.8-10.8)
[2024-03-22 06:51] LABS: MANUAL DIFF REFLEX YES
[2024-03-22 06:56] VITALS: BP 116/88
[2024-03-22 07:19] LABS: POTASSIUM 4.6 mmol/L (3.4-5.1)
[2024-03-22 07:38] LABS: PLATELET SUFFICIENCY NORMAL (NORMAL); TOTAL CELLS COUNTED 100 #CELLS
[2024-03-22 09:50] VITALS: BP 116/50
[2024-03-22] MEDS ORDERED: Cetirizine Hydrochloride 10 MG TAB PO SCH (10:00)
[2024-03-22] MEDS ORDERED: DUTASTERIDE 0.5 MG CAP PO SCH (10:00)
[2024-03-22] MEDS ORDERED: LISINOPRIL 20 MG TAB PO SCH (10:00)
[2024-03-22 14:18] LABS: BILIRUBIN Negative (Negative); BLOOD Negative (Negative); CLARITY Clear (Clear); COLOR Yellow (Yellow); GLUCOSE 1+ (Negative); KETONE Negative (Negative); LEUKO ESTERASE Negative (Negative); NITRITE Negative (Negative); UROBILINOGEN 0.2 E.U./dl (0.0-1.0)
[2024-03-22 14:26] LABS: URINE CREATININE RANDOM 125.06 mg/dL
[2024-03-22] MEDS ORDERED: AZITHROMYCIN 250 ML IV SCH (16:00)
[2024-03-22] MEDS ORDERED: Ceftriaxone Sodium 1 GM,IV 1 EA in SYRINGE INFUSION 10 ML IV SCH (17:00)
[2024-03-22 17:54] VITALS: BP 90/48
[2024-03-22 18:42] VITALS: BP 113/48
[2024-03-22 21:15] VITALS: BP 113/47
[2024-03-23] VITALS (7 sets, daily range): BP systolic 109–151; BP diastolic 49–89
[2024-03-23 06:47] LABS: POTASSIUM 4.1 mmol/L (3.4-5.1)
[2024-03-23] MEDS ORDERED: Albuterol Sulf/Ipratropium 3 ML VIAL NEB SCH (19:40)
[2024-03-24] VITALS: BP 108/46
[2024-03-24 06:15] LABS: BUN 33 mg/dl (9-23); CHLORIDE 102 mmol/L (98-107); POTASSIUM 4.3 mmol/L (3.4-5.1)
[2024-03-24 08:00] VITALS: BP 121/47
[2024-03-24] MEDS ORDERED: TAMSULOSIN HCL0.4 MG PO (11:00)
[2024-03-24 12:00] VITALS: BP 137/66
[2024-03-24 15:00] VITALS: BP 134/54
[2024-03-25] MEDS ORDERED: predniSONE 10 MG TAB PO SCH (10:00)
[2024-03-28] MEDS ORDERED: predniSONE 10 MG TAB PO SCH (10:00)
[2024-03-31] MEDS ORDERED: predniSONE 10 MG TAB PO SCH (10:00)
[2024-04-02] MEDS ORDERED: predniSONE 10 MG TAB PO SCH (10:00)
== END 2024-03-24 17:48 | disposition home or self-care (01) | DRG 133 ==
LOC: ED 12:04 → 4E 15:09 → EDHOLD 15:09 → 4E 03-23 14:40
PROVIDERS: Internal Medicine Nephrology; Nurse Practitioner Family; ADMIT Internal Medicine; ATTEND Internal Medicine
DX: J96.21 Acute and chronic respiratory failure with hypoxia (principal); N17.0 Acute kidney failure with tubular necrosis; J44.1 Chronic obstructive pulmonary disease with (acute) exacerbation; N18.31 Chronic kidney disease, stage 3a; F41.1 Generalized anxiety disorder; F31.9 Bipolar disorder, unspecified; I25.10 Atherosclerotic heart disease of native coronary artery without angina pectoris; I12.9 Hypertensive chronic kidney disease with stage 1 through stage 4 chronic kidney disease, or unspecified chronic kidney disease; F41.9 Anxiety disorder, unspecified; K21.9 Gastro-esophageal reflux disease without esophagitis; B35.4 Tinea corporis; J20.9 Acute bronchitis, unspecified; N40.1 Benign prostatic hyperplasia with lower urinary tract symptoms; R33.8 Other retention of urine; J45.901 Unspecified asthma with (acute) exacerbation; Z88.7 Allergy status to serum and vaccine; Z88.8 Allergy status to other drugs, medicaments and biological substances; Z88.6 Allergy status to analgesic agent; Z88.1 Allergy status to other antibiotic agents; Z91.041 Radiographic dye allergy status; Z91.013 Allergy to seafood; Z82.49 Family history of ischemic heart disease and other diseases of the circulatory system; Z83.6 Family history of other diseases of the respiratory system

== ENCOUNTER → 2024-04-21 | Outpatient (CLI) | payer OTHER ==
[~2024-04-21] MED LIST changes: +DUTASTERIDE0.5 MG PO; +ZESTORETIC 20-1 EACH PO
[2024-04-21 08:55] LABS: BASO % 0.3 % (0.0-1.0); EOS # 0.4 10*3/uL (0.0-0.4); EOS % 5.1 % (1.0-4.0); HEMATOCRIT 34.9 % (42.0-52.0); LYMPH # 0.8 10*3/uL (1.3-4.4); LYMPH % 11.4 % (27.0-41.0); MEAN CELL VOLUME 93.1 fl (80.0-94.0); MEAN CORPUSCULAR HGB 30.7 pg (27.0-31.0); MEAN PLATELET VOLUME 8.6 fl (9.6-12.3); MONO # 0.6 10*3/uL (0.1-1.0); MONO % 9.1 % (3.0-9.0); PLATELET COUNT AUTOMATED 168 10*3/uL (130-400); RED BLOOD COUNT 3.75 10*6/uL (4.50-5.90); RED CELL DISTRI WIDTH 13.2 % (0-14.5); WHITE BLOOD COUNT 6.8 10*3/uL (4.8-10.8)
[2024-04-21 09:14] LABS: ALKALINE PHOSPHATASE 66 U/L (46-116); BUN 18 mg/dl (9-23); CHLORIDE 100 mmol/L (98-107); POTASSIUM 3.9 mmol/L (3.4-5.1); SGPT/ALT 14 U/L (5-49); TOTAL PROTEIN 7.1 gm/dL (6.0-8.0)
== END | disposition home or self-care (01) ==
LOC: LAB 08:28
PROVIDERS: ATTEND Nurse Practitioner
DX: F25.0 Schizoaffective disorder, bipolar type (principal); Z51.81 Encounter for therapeutic drug level monitoring

== ENCOUNTER 2024-06-01 15:38 | Emergency (ER) | payer OTHER ==
[~2024-06-01] VITALS: Ht 182.8 cm; Wt 62.6 kg
[2024-06-01 15:47] VITALS: BP 130/63
[2024-06-01] MEDS ORDERED: Albuterol Sulf/Ipratropium 3 ML VIAL NEB ONE (16:00)
[2024-06-01] MEDS ORDERED: methylPREDNISolone sod succ 125 MG VIAL IM ONE (16:00)
[2024-06-01 16:24] LABS: BASO % 0.6 % (0.0-1.0); EOS # 0.9 10*3/uL (0.0-0.4); HEMATOCRIT 35.9 % (42.0-52.0); MEAN CELL VOLUME 91.1 fl (80.0-94.0); MEAN CORPUSCULAR HGB 30.5 pg (27.0-31.0); MEAN CORPUSCULAR HGB CONC 33.4 g/dl (33.0-37.0); MEAN PLATELET VOLUME 9.1 fl (9.6-12.3); MONO # 0.5 10*3/uL (0.1-1.0); MONO % 7.8 % (3.0-9.0); NEUT # 3.9 10*3/uL (2.3-7.9); NEUT % 59.1 % (47.0-73.0); PLATELET COUNT AUTOMATED 202 10*3/uL (130-400); RED BLOOD COUNT 3.94 10*6/uL (4.50-5.90); RED CELL DISTRI WIDTH 12.7 % (0-14.5); WHITE BLOOD COUNT 6.5 10*3/uL (4.8-10.8)
[2024-06-01 16:43] LABS: BUN 15 mg/dl (9-23); CHLORIDE 100 mmol/L (98-107); POTASSIUM 3.9 mmol/L (3.4-5.1)
[2024-06-01] MEDS ORDERED: PREDNISONE10 MG PO (17:07)
[2024-06-01] MEDS ORDERED: VIBRAMYCIN100 MG PO (17:07)
== END 2024-06-01 17:12 | disposition home or self-care (01) ==
LOC: ED 15:38
PROVIDERS: Physician Assistant Medical
DX: J44.1 Chronic obstructive pulmonary disease with (acute) exacerbation (principal); Z20.822 Contact with and (suspected) exposure to COVID-19; F41.9 Anxiety disorder, unspecified; K21.9 Gastro-esophageal reflux disease without esophagitis; F31.9 Bipolar disorder, unspecified; J43.9 Emphysema, unspecified; Z91.041 Radiographic dye allergy status; Z88.0 Allergy status to penicillin; Z91.012 Allergy to eggs; Z88.7 Allergy status to serum and vaccine; Z88.1 Allergy status to other antibiotic agents; Z91.010 Allergy to peanuts; Z91.013 Allergy to seafood; Z91.018 Allergy to other foods; Z88.6 Allergy status to analgesic agent; Z88.5 Allergy status to narcotic agent; Z88.8 Allergy status to other drugs, medicaments and biological substances; Z98.890 Other specified postprocedural states; Z90.49 Acquired absence of other specified parts of digestive tract

== ENCOUNTER 2024-10-25 15:08 | Emergency (ER) | payer OTHER ==
[~2024-10-25] VITALS: Ht 170.1 cm; Wt 61.2 kg
[2024-10-25 15:15] VITALS: BP 110/58
[2024-10-25] MEDS ORDERED: predniSONE 20 MG TAB PO ONE (15:25)
[2024-10-25] MEDS ORDERED: AZITHROMYCIN 250 MG TAB PO ONE (15:25)
[2024-10-25] MEDS ORDERED: Albuterol Sulf/Ipratropium 3 ML VIAL NEB SCH (15:30)
[2024-10-25] MEDS ORDERED: ZITHROMAX250 MG PO (15:32)
[2024-10-25] MEDS ORDERED: PREDNISONE10 M1 PO (15:32)
[2024-10-25] MEDS ORDERED: VENT7GM INH (15:32)
== END 2024-10-25 16:06 | disposition home or self-care (01) ==
LOC: ED 15:08
DX: J45.909 Unspecified asthma, uncomplicated (principal); J44.9 Chronic obstructive pulmonary disease, unspecified; F41.9 Anxiety disorder, unspecified; K21.9 Gastro-esophageal reflux disease without esophagitis; Z79.899 Other long term (current) drug therapy; Z98.890 Other specified postprocedural states

== ENCOUNTER → 2025-02-27 | Outpatient (CLI) | payer OTHER ==
[~2025-02-27] MED LIST changes: +PREDNISONE10 M1 PO; +VENT7GM INH
[2025-02-27 08:37] LABS: BASO # 0.0 10*3/uL (0.0-0.1); BASO % 0.4 % (0.0-1.0); EOS # 1.0 10*3/uL (0.0-0.4); EOS % 13.3 % (1.0-4.0); MEAN CELL VOLUME 90.9 fl (80.0-94.0); MEAN CORPUSCULAR HGB 30.1 pg (27.0-31.0); MEAN PLATELET VOLUME 8.8 fl (9.6-12.3); MONO # 0.7 10*3/uL (0.1-1.0); MONO % 8.5 % (3.0-9.0); NEUT # 4.9 10*3/uL (2.3-7.9); NEUT % 63.6 % (47.0-73.0); NUCLEATED RED BLOOD CELL 0.0 % (0.0-0.0); NUCLEATED RED BLOOD CELL 0.0 10*3/uL (0.0-0.0); PLATELET COUNT AUTOMATED 198 10*3/uL (130-400); RED CELL DISTRI WIDTH 12.7 % (0-14.5)
[2025-02-27 09:10] LABS: BUN 25 mg/dl (9-23); FREE T4 1.38 ng/dl (0.89-1.76); LDL CHOLESTEROL 103 mg/dL (9-159)
[2025-02-27 09:18] LABS: SGPT/ALT < 7 U/L (5-49)
[2025-02-27 10:29] LABS: VITAMIN D, 25-HYDROXY 71.9 ng/mL (30-100)
== END ==
LOC: LAB 08:23
PROVIDERS: ATTEND Internal Medicine
DX: I10 Essential (primary) hypertension (principal); E78.2 Mixed hyperlipidemia; E11.9 Type 2 diabetes mellitus without complications; E11.65 Type 2 diabetes mellitus with hyperglycemia; E55.9 Vitamin D deficiency, unspecified; R53.83 Other fatigue; E53.9 Vitamin B deficiency, unspecified; R97.20 Elevated prostate specific antigen [PSA]

== ENCOUNTER 2025-05-22 14:20 | Emergency (ER) | payer OTHER ==
[~2025-05-22] VITALS: Ht 170.1 cm; Wt 59.0 kg
[2025-05-22 14:30] VITALS: BP 126/50
[2025-05-22] MEDS ORDERED: Albuterol Sulf/Ipratropium 3 ML VIAL NEB ONE (14:55)
[2025-05-22 15:12] LABS: BASO # 0.0 10*3/uL (0.0-0.1); BASO % 0.3 % (0.0-1.0); EOS # 0.4 10*3/uL (0.0-0.4); EOS % 3.4 % (1.0-4.0); MEAN CELL VOLUME 85.8 fl (80.0-94.0); MEAN CORPUSCULAR HGB 31.3 pg (27.0-31.0); MEAN PLATELET VOLUME 8.2 fl (9.6-12.3); MONO # 0.8 10*3/uL (0.1-1.0); MONO % 7.5 % (3.0-9.0); NEUT # 8.7 10*3/uL (2.3-7.9); NEUT % 83.7 % (47.0-73.0); NUCLEATED RED BLOOD CELL 0.0 % (0.0-0.0); NUCLEATED RED BLOOD CELL 0.0 10*3/uL (0.0-0.0); PLATELET COUNT AUTOMATED 231 10*3/uL (130-400); RED CELL DISTRI WIDTH 13.8 % (0-14.5)
[2025-05-22 15:32] LABS: BUN 16.0 mg/dl (9-23)
[2025-05-22] MEDS ORDERED: FAMOTIDINE 20 MG in SYRINGE INFUSION 8 ML IV ONE (16:25)
[2025-05-22] MEDS ORDERED: diphenhydrAMINE hydrochloride 50 MG/ML VIAL IV ONE (16:25)
[2025-05-22] MEDS ORDERED: Iodixanol 320 100 ML VIAL IV ONE (16:50)
[2025-05-22] MEDS ORDERED: SODIUM CHLORIDE 0.9% 100 ML BAG IV ONE (16:50)
[2025-05-22] MEDS ORDERED: Water, Sterile 10 ML VIAL ONE (17:21)
== END 2025-05-22 17:13 | disposition left against medical advice (07) ==
LOC: ED 14:20
PROVIDERS: Student in an Organized Health Care Education/Training Program
DX: R07.89 Other chest pain (principal); J44.89 Other specified chronic obstructive pulmonary disease; F41.9 Anxiety disorder, unspecified; K21.9 Gastro-esophageal reflux disease without esophagitis; F31.9 Bipolar disorder, unspecified; Z53.29 Procedure and treatment not carried out because of patient's decision for other reasons; Z98.890 Other specified postprocedural states; Z88.7 Allergy status to serum and vaccine; Z88.0 Allergy status to penicillin; Z91.013 Allergy to seafood; Z88.5 Allergy status to narcotic agent; Z88.1 Allergy status to other antibiotic agents; Z88.8 Allergy status to other drugs, medicaments and biological substances; Z91.0120 Allergy to eggs, unspecified; Z88.6 Allergy status to analgesic agent

== ENCOUNTER 2025-07-10 14:59 | Emergency (ER) | payer OTHER ==
[~2025-07-10 14:59] MED LIST changes: +DICLOFENAC SODI50 GM T; +LAC-HYDRIN FIV226 GM T; +ZESTORETIC 10-1 EACH PO
[2025-07-10] MEDS ORDERED: Albuterol Sulf/Ipratropium 3 ML VIAL NEB ONE (15:10)
[2025-07-10 15:20] VITALS: BP 120/55
[2025-07-10 15:25] LABS: BASO # 0.0 10*3/uL (0.0-0.1); BASO % 0.4 % (0.0-1.0); EOS # 0.6 10*3/uL (0.0-0.4); EOS % 7.6 % (1.0-4.0); MEAN CELL VOLUME 97.5 fl (80.0-94.0); MEAN CORPUSCULAR HGB 32.2 pg (27.0-31.0); MEAN PLATELET VOLUME 8.6 fl (9.6-12.3); MONO # 0.7 10*3/uL (0.1-1.0); MONO % 9.0 % (3.0-9.0); NEUT # 5.5 10*3/uL (2.3-7.9); NEUT % 73.2 % (47.0-73.0); NUCLEATED RED BLOOD CELL 0.0 % (0.0-0.0); NUCLEATED RED BLOOD CELL 0.0 10*3/uL (0.0-0.0); PLATELET COUNT AUTOMATED 204 10*3/uL (130-400); RED CELL DISTRI WIDTH 14.2 % (0-14.5)
[2025-07-10 15:51] LABS: BUN 10 mg/dl (9-23)
[2025-07-10] MEDS ORDERED: VIBRAMYCIN100 MG PO (17:11)
[2025-07-10] MEDS ORDERED: PREDNISONE50 MG PO (17:11)
== END 2025-07-10 17:41 | disposition home or self-care (01) ==
LOC: ED 14:59
PROVIDERS: Nurse Practitioner Family
DX: J44.1 Chronic obstructive pulmonary disease with (acute) exacerbation (principal); F41.9 Anxiety disorder, unspecified; K21.9 Gastro-esophageal reflux disease without esophagitis; F31.9 Bipolar disorder, unspecified; Z98.890 Other specified postprocedural states; Z88.6 Allergy status to analgesic agent; Z88.7 Allergy status to serum and vaccine; Z88.5 Allergy status to narcotic agent; Z88.8 Allergy status to other drugs, medicaments and biological substances; Z91.013 Allergy to seafood; Z91.0110 Allergy to milk products, unspecified; Z88.0 Allergy status to penicillin; Z91.018 Allergy to other foods

== ENCOUNTER 2025-07-11 10:04 | Emergency (ER) | payer OTHER ==
[~2025-07-11] VITALS: Ht 170.1 cm; Wt 61.2 kg
[~2025-07-11 10:04] MED LIST changes: +PREDNISONE50 MG PO
[2025-07-11 10:11] VITALS: BP 133/54
[2025-07-11] MEDS ORDERED: ACETAMINOPHEN 325 MG TAB PO ONE (10:30)
== END 2025-07-11 12:13 | disposition home or self-care (01) ==
LOC: ED 10:04
DX: S06.0X0A Concussion without loss of consciousness, initial encounter (principal); R55 Syncope and collapse; J44.89 Other specified chronic obstructive pulmonary disease; F41.9 Anxiety disorder, unspecified; K21.9 Gastro-esophageal reflux disease without esophagitis; F31.9 Bipolar disorder, unspecified; Z98.890 Other specified postprocedural states; Z88.7 Allergy status to serum and vaccine; Z88.5 Allergy status to narcotic agent; Z88.6 Allergy status to analgesic agent; Z88.1 Allergy status to other antibiotic agents; Z88.8 Allergy status to other drugs, medicaments and biological substances; Z91.013 Allergy to seafood; Z91.018 Allergy to other foods; Z88.0 Allergy status to penicillin; W01.0XXA Fall on same level from slipping, tripping and stumbling without subsequent striking against object, initial encounter; Y93.89 Activity, other specified; Y92.89 Other specified places as the place of occurrence of the external cause; Y99.8 Other external cause status